=== PATIENT | male | born 2000 | race Caucasian/White ===

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

== ENCOUNTER 2021-02-20 14:46 | Inpatient (IN) | payer BC, SELFPAY ==
[2021-02-20 14:47] VITALS: BP 149/83; PULSE 101; RESP 18; TEMP 36.8; O2SAT 100; BMI 23.7
[2021-02-20 15:28] LABS: Basophils # 0.1 K/mm3 (0-0.2); Basophils % 0.9 % (0.1-2.0); Eosinophils # 0.1 K/mm3 (0.0-0.4); Eosinophils % 1.8 % (0.1-12.0); Hematocrit 48.8 % (42.0-52.0); Hemoglobin 16.7 g/dL (14.1-18.0); Lymphocytes # 2.4 K/mm3 (0.7-4.5); Lymphocytes % 31.9 % (10-50); Mean Corpuscular HGB Conc 34.2 g/dL (31.8-35.4); Mean Corpuscular Hemoglobin 29.8 pg (27.0-31.2); Mean Corpuscular Volume 87.1 fl (80-94); Mean Platelet Volume 8.7 fl (7.4-10.4); Monocytes # 0.4 K/mm3 (0.1-1.0); Monocytes % 5.6 % (1.7-9.3); Neutrophils # 4.4 K/mm3 (1.8-7.8); Neutrophils % 59.8 % (37.0-80.0); Platelet Count 218 K/mm3 (142-424); Red Cell Distribution Width 12.1 % (11.5-17.5); White Blood Count 7.4 K/mm3 (4.5-13.0)
[2021-02-20 15:31] VITALS: BP 130/66; PULSE 61; O2SAT 99
[2021-02-20 15:38] LABS: Alanine Aminotransferase 17 U/L (12-78); Albumin/Globulin Ratio 2.1 (1.1-1.8); Alkaline Phosphatase 84 U/L (38-126); Anion Gap 11.7 mEq/L (5-15); Aspartate Amino Transferase 30 U/L (17-59); Bilirubin,Total 1.4 mg/dl (0.2-1.3); Blood Urea Nitrogen 8 mg/dl (9-20); Calcium 9.8 mg/dl (8.4-10.2); Carbon Dioxide 26 mmol/L (22.0-30.0); Chloride 105 mmol/L (98-107); Creatinine Clearance Estimated 131 mL/min (50-200); Estimated Glomerular Filt Rate 85 ml/min (>60); GFR (African American) 103 ML/MIN (>60); Globulin 2.4 g/dL (1.3-3.2); Glucose 142 mg/dl (74-100); Potassium 3.7 mmoL/L (3.5-5.1); Sodium 139 mmol/L (136-145); Total Protein,Serum 7.4 g/dl (6.3-8.2)
--- NOTE | 2021-02-20 15:38 | HMH.EDGENADL ---
ED Disposition Clinical Impression: Kidney stone on left side Disposition: Admitted as Observation Condition on Discharge: Fair Instructions: DI for Kidney Stones Referrals: Hunter Armenta MD [Primary Care Provider] - Time of Disposition: 18:56 - Critical Care Critical Care Time: No Attestation: On 02/20/21, the high probability of a clinically significant, sudden or life threatening deterioration of the following system(s) required my full and direct attention, intervention and personal management. The time I documented below is in addition to time spent performing reported procedures but includes the following listed in this critical care notation. Medical Decision Making - Medical Records Medical records reviewed: Yes: I reviewed the patient's medical records. - Carlos Inquiry Pt receiving controlled substance: No Vital Signs: 02/20/21 14:47 02/20/21 17:12 02/20/21 18:06 Temperature 98.2 F Temperature Source Oral Pulse Rate 58 L 48 L Pulse Rate [Right] 101 H Respiratory Rate 18 Blood Pressure 108/51 L 115/54 L Blood Pressure [Right Arm] 149/83 H Blood Pressure Mean [Right Arm] 105 Blood Pressure Source Automatic Cuff Automatic Cuff Blood Pressure Position Sitting Sitting 02 Sat by Pulse Oximetry 100 96 98 Oxygen Delivery Method Room Air - Lab Data Lab Results 02/20/21 15:15: WBC 7.4, RBC 5.60, Hgb 16.7, Hct 48.8, MCV 87.1, MCH 29.8, MCHC 34.2, RDW 12.1, Plt Count 218, MPV 8.7, Neut % (Auto) 59.8, Lymph % (Auto) 31.9, [place] % (Auto) 5.6, Eos % (Auto) 1.8, Baso % (Auto) 0.9, Neut # (Auto) 4.4, Lymph # (Auto) 2.4, [place] # (Auto) 0.4, Eos # (Auto) 0.1, Baso # (Auto) 0.1 02/20/21 15:15: Sodium 139, Potassium 3.7, Chloride 105, Carbon Dioxide 26, Anion Gap 11.7, BUN 8 L, Creatinine 1.10, Estimated Creat Clear 131, Estimated GFR 85, Est GFR ( Amer) 103, Glucose 142 H, Calcium 9.8, Total Bilirubin 1.4 H, AST 30, ALT 17, Alkaline Phosphatase 84, Total Protein 7.4, Albumin 5.0, Globulin 2.4, Albumin/Globulin Ratio 2.1 H 02/20/21 18:23: Urine Color Brown, Urine Appearance Sl cloudy, Urine pH 6.5, Ur Specific [place] >= 1.030, Urine Protein 2+, Urine Glucose (UA) Negative, Urine Ketones Trace, Urine Blood 3+, Urine Nitrate Negative, Urine Bilirubin Negative, Urine Urobilinogen 1.0, Ur Leukocyte Esterase Negative, Urine RBC Tntc, Urine WBC Occasional, Ur Squamous Epith Cells None, Urine Bacteria 3+, Urine Mucus 2+ Result diagrams: 02/20/21 15:15 02/20/21 15:15 Orders (Tests/Meds): ED MEDICATIONS Generic Name Dose Route Start Last Admin Trade Name Freq PRN Reason Stop Dose Admin Sodium Chloride 1,000 mls @ 999 mls/hr 02/20/21 17:00 02/20/21 17:12 Sod Chlor 0.9% 1000ml Bag IV 02/20/21 18:00 999 mls/hr .Q1H1M PRADIP Administration Tamsulosin HCl 0.4 mg 02/20/21 21:00 02/20/21 17:15 Tamsulosin 0.4mg Capsule PO 03/22/21 20:59 0.4 mg HS PRADIP Administration Discontinued Medications Generic Name Dose Route Start Last Admin Trade Name Melloq PRN Reason Stop Dose Admin Hydromorphone HCl 1 mg 02/20/21 16:52 02/20/21 16:54 Hydromorphone 2mg/Ml Syringe IV 02/20/21 16:53 1 mg ONCE ONE Administration Sodium Chloride 1,000 mls @ 999 mls/hr 02/20/21 15:00 02/20/21 15:27 Sod Chlor 0.9% 1000ml Bag IV 02/20/21 16:00 999 mls/hr .Q1H1M PRADIP Administration Ketorolac Tromethamine 15 mg 02/20/21 14:59 02/20/21 15:26 Ketorolac 30mg/Ml Vial IV 02/20/21 15:00 15 mg ONCE ONE Administration Morphine Sulfate 4 mg 02/20/21 15:40 02/20/21 15:42 Morphine 4mg/Ml Syringe IV 02/20/21 15:41 4 mg ONCE ONE Administration Ondansetron HCl 4 mg 02/20/21 14:59 02/20/21 15:26 Ondansetron 4mg/2ml Vial IV 02/20/21 15:00 4 mg ONCE ONE Administration ORDERS Category Date Time Status CT abdomen pelvis wo con Stat Cat Scan 02/20/21 15:42 Taken Urine Culture Stat Micro 02/20/21 18:23 Received - CT Data CT Scan: Abdomen Time Receiv
--- NOTE | 2021-02-20 15:42 | CT_ITS ---
PROCEDURE: CT ABDOMEN PELVIS WO CON CLINICAL INDICATION: left flank pain COMPARISON: CT ABDPELW/O CT ABD PELVIS W/O CONTRAST from 11/05/2014 TECHNIQUE: Axial images obtained with sagittal and coronal reformats. All CT scans at the facility use one or more dose reduction, viz: automated exposure control, ma/kV adjustment per patient size (including targeted exams where dose is matched to indication, i.e. head), or iterative reconstruction technique. FINDINGS: LOWER THORAX: No acute finding ABDOMEN & PELVIS: There is a small hiatal hernia. There are multiple punctate splenic calcifications and a small right hepatic lobe calcification. There is a 5 mm stone in the proximal left ureter at the L2-L3 level causing mild left obstructive uropathy. There is minimal stranding of the left proximal periureteral fat. No renal calculi are evident. No evidence of appendicitis. No intestinal obstruction or free air. There is mild thickening of the descending and sigmoid colon. This is nonspecific and may be due to nondistention. Colitis could have a similar appearance. There is few small mesenteric lymph nodes. Small punctate calcification is present in the right femoral head and may represent a small bone island IMPRESSION: 5 mm obstructing stone in the proximal left ureter with mild left hydronephrosis Nonspecific thickening of the descending and sigmoid colon which may be due to nondistention or colitis. Dictated by: Star Heath MD 02/21/2021 11:27 Star Heath MD in [place] 02/21/2021 11:27
--- NOTE | 2021-02-20 16:38 | PC.NURSE ---
Pt complains of more pain at this time.
[2021-02-20 17:12] VITALS: BP 108/51; PULSE 58; O2SAT 96
[2021-02-20 18:06] VITALS: BP 115/54; PULSE 48; O2SAT 98
--- NOTE | 2021-02-20 18:25 | PC.NURSE ---
Pt's urine collected and was tea colored.
[2021-02-20 18:31] LABS: Microscopic, Urine URINE MICROSCOPIC (MICROSCOPIC)
[2021-02-20 18:38] LABS: Appearance,Urine SL CLOUDY (Clear); Blood, Urine 3+ (Negative); Color,Urine BROWN (Yellow); Glucose,Urine (UA) Negative (Negative); Ketones,Urine TRACE (Negative); Leukocyte Esterase,Urine Negative (Negative); Nitrate,Urine Negative (Negative); PH,Urine 6.5 (5.0-8.5); Protein,Urine 2+ (Negative); Specific Gravity, Urine >= 1.030 (1.005-1.030)
[2021-02-20 18:41] LABS: Bilirubin,Urine Negative (Negative)
[2021-02-20 18:48] LABS: Bacteria,Urine 3+ /lpf; Mucus,Urine 2+ /lpf; RBC,Urine TNTC #/hpf (0-3); WBC,Urine Occasional #/hpf (0-3)
[2021-02-20 19:39] LABS: Adenovirus,PCR Not Detected (NotDetected); Bordetella Pertussis Not Detected (NotDetected); Chlamydophila Pneumoniae, PCR Not Detected (NotDetected); Coronavirus 19, PCR Not Detected (NotDetected); Coronavirus 229E Not Detected (NotDetected); Coronavirus NL63 Not Detected (NotDetected); Coronavirus OC43 Not Detected (NotDetected); Coronovirus HKU1,PCR Not Detected (NotDetected); Human Metapneumovirus Not Detected (NotDetected); Influenza A, PCR Not Detected (NotDetected); Influenza AH1, 2009 Not Detected (NotDetected); Influenza AH1, PCR Not Detected (NotDetected); Influenza AH3,PCR Not Detected (NotDetected); Influenza B, PCR Not Detected (NotDetected); Mycoplasma Pneumoniae, PCR Not Detected (NotDetected); Parainfluenza 1, PCR Not Detected (NotDetected); Parainfluenza 2, PCR Not Detected (NotDetected); Parainfluenza 3, PCR Not Detected (NotDetected); Parainfluenza 4, PCR Not Detected (NotDetected); Respiratory Syncytial Virus Not Detected (NotDetected); Rhinovirus/Enterovirus Not Detected (NotDetected)
--- NOTE | 2021-02-20 20:42 | PC.NURSE ---
called second floor to come get patient report and patient.
[2021-02-20 20:56] VITALS: BP 115/54; PULSE 48; RESP 16; TEMP 36.8; O2SAT 98
[2021-02-20 21:00] VITALS: BP 130/68; PULSE 56; RESP 15; TEMP 36.8; O2SAT 100; BMI 25.9
--- NOTE | 2021-02-20 21:00 | PC.NURSE ---
patient up to floor wheelchair.
[2021-02-21 03:49] VITALS: BP 143/72; PULSE 66; RESP 16; TEMP 36.6; O2SAT 100
--- NOTE | 2021-02-21 04:03 | PC.NURSE ---
Pt. had two episodes of l flank pain; effectiveness reported with morphine. No n/v/d or dizziness reported. Intermittent soa with episodes of pain. Urine dark yellow in color; straining with no sediment noted.
[2021-02-21 05:07] VITALS: BMI 25.8
[2021-02-21 06:20] LABS: Basophils % 0.2 % (0.1-2.0); Eosinophils # 0.2 K/mm3 (0.0-0.4); Eosinophils % 1.5 % (0.1-12.0); Hematocrit 44.8 % (42.0-52.0); Hemoglobin 15.2 g/dL (14.1-18.0); Lymphocytes # 2.6 K/mm3 (0.7-4.5); Lymphocytes % 24.6 % (10-50); Mean Corpuscular HGB Conc 33.9 g/dL (31.8-35.4); Mean Corpuscular Hemoglobin 29.9 pg (27.0-31.2); Mean Corpuscular Volume 88.1 fl (80-94); Mean Platelet Volume 8.8 fl (7.4-10.4); Monocytes # 0.6 K/mm3 (0.1-1.0); Monocytes % 5.3 % (1.7-9.3); Neutrophils # 7.1 K/mm3 (1.8-7.8); Neutrophils % 68.3 % (37.0-80.0); Platelet Count 168 K/mm3 (142-424); Red Blood Count 5.09 M/mm3 (4.60-6.20); Red Cell Distribution Width 12.1 % (11.5-17.5); White Blood Count 10.4 K/mm3 (4.5-13.0)
[2021-02-21 06:33] LABS: Chloride 108 mmol/L (98-107); Potassium 3.6 mmoL/L (3.5-5.1); Sodium 140 mmol/L (136-145)
[2021-02-21 06:36] LABS: Anion Gap 9.6 mEq/L (5-15); Blood Urea Nitrogen 7 mg/dl (9-20); Carbon Dioxide 26 mmol/L (22.0-30.0); Creatinine Clearance Estimated 175 mL/min (50-200); Estimated Glomerular Filt Rate 108 ml/min (>60); GFR (African American) 130 ML/MIN (>60)
[2021-02-21 06:37] LABS: Glucose 97 mg/dl (74-100)
[2021-02-21 07:01] LABS: Calcium 8.8 mg/dl (8.4-10.2)
--- NOTE | 2021-02-21 07:33 | P.CONPHA_ITS ---
[facility] Pharmacy VTE Monitoring - Patient Demographics Admission date: 02/20/21 Report Date: 02/21/21 Time: 07:33 Allergies/Adverse Reactions: Patient Allergies No Known Allergies Allergy (Verified 07/29/20 13:27) Height: 1.91 m Weight: 94.376 kg Patient Problems: Current Active Problems Kidney stone on left side (Acute) - VTE Risk Labs: VTE Related Lab Results Hgb 15.2 g/dL (14.1-18.0) 02/21/21 06:08 Hct 44.8 % (42.0-52.0) 02/21/21 06:08 Plt Count 168 K/mm3 (142-424) 02/21/21 06:08 BUN 7 mg/dl (9-20) L 02/21/21 06:08 Creatinine 0.90 mg/dl (0.66-1.25) 02/21/21 06:08 Estimated Creat Clear 175 mL/min (50-200) 02/21/21 06:08 Was VTE Risk Assessment Performed: Yes VTE Score: 0 VTE Risk Level: Very Low Risk - Prophylaxis VTE Prophylaxis Ordered?: Yes Types of VTE Prophylaxis: TEDS Knee High Location of Applied Device: Bilateral Lower Extremeties
[2021-02-21 08:00] VITALS: BP 123/50; PULSE 73; RESP 16; TEMP 36.8; O2SAT 97
--- NOTE | 2021-02-21 08:46 | HMH.HP ---
*Admission Date: 02/20/21 <Lyla Sullivan 02/21/21 09:00> *Chief complaint: Left leg pain <Lyla Sullivan 02/21/21 09:00> *History of present illness: Mr. Barr is a 21-year-old male with a history of seizure disorder and disseminated histoplasmosis who presented to the emergency room yesterday p.m. after experiencing sudden onset of left flank pain. He describes the pain as like a dagger sticking in the side. He works nights at [employer], slept well, and when awake went out to mow the lawn. While on his riding mower the pain began. He also had some nausea. Work-up in the emergency room revealed a kidney stone At 3.5 mm in the proximal ureter. He received a liter of IV fluids, was started on Flomax and given hydromorphone, Ketorolac and morphine for his pain. He also received Zofran for some nausea. The Dilaudid seemed to help his pain the best. Laboratory data on admission showed a normal CBC. Electrolytes were normal. BUN was 8 creatinine 1.10. Total bilirubin was a little high at 1.4 with otherwise normal liver function studies. Urine did show 3+ blood. This a.m. at time of exam patient is shaking with discomfort. He received morphine at 7 AM and was then given Dilaudid at this time. He was also given Zofran for nausea. He has been voiding and urine appears with blood. <Lyla Sullivan 02/21/21 09:00> [facility] History Medical History: Reports:: Kidney Stones, Seizures (Last seizure was about a month ago) Denies:: Cancer, Diabetes Mellitus Type 1, Diabetes Mellitus Type 2, MRSA <Lyla Sullivan 02/21/21 09:00> *Have you ever received a pneumonia vaccine?: No <Lyla Sullivan 02/21/21 09:00> *Have you received a flu vaccine this season?: No <Lyla Sullivan 02/21/21 09:00> Other Medical History: Reports: Other (histoplasmosis) <Lyla Sullivan 02/21/21 09:00> Comment:: Patient notes a 30 pound weight loss in the last 1 to 2 months. 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 <Lyla Sullivan 02/21/21 09:00> Other Surgeries: Yes: Other (wisdom teeth) <Lyla Sullivan 02/21/21 09:00> Amputation: No <Lyla Sullivan 02/21/21 09:00> - *Social History Last grade of school completed: High school graduate <Lyla Sullivan 02/21/21 09:00> Smoking Status: Current every day smoker <Lyla Sullivan 02/21/21 09:00> Tobacco Type: e-cigarettes, smokeless tobacco <Lyla Sullivan 02/21/21 09:00> # Packs/Day (cigarettes): 0 <Lyla Sullivan 02/21/21 09:00> Alcohol Intake: current <Lyla Sullivan 02/21/21 09:00> Alcohol Intake Frequency:: holidays/special occasions only <Lyla Sullivan 02/21/21 09:00> Substance Use Type: marijuana <Lyla Sullivan 02/21/21 09:00> Last Used Substance: hours (ago) <Lyla Sullivan 02/21/21 09:00> *Occupational Status:: employed <Lyla Sullivan 02/21/21 09:00> Housing: house <Lyla Sullivan 02/21/21 09:00> Household Members: family <Lyla Sullivan 02/21/21 09:00> *Travel in the last 8 weeks: None <Lyla Sullivan 02/21/21 09:00> Family Hx:: Bleeding Disorder, Cancer, Diabetes, Heart Attack <Lyla Sullivan 02/21/21 09:00> Review of Systems - Constitutional Reports weight loss <Lyla Sullivan 02/21/21 09:00> - Eyes Denies change in vision <Lyla Sullivan 02/21/21 09:00> - ENT Denies ear pain, Denies sore throat <Lyla Sullivan 02/21/21 09:00> - *Cardiovascular Denies chest pain, Denies shortness of breath, Denies generalized swelling, Denies leg swelling <Lyla Sullivan 02/21/21 09:00> - *Respiratory Denies chest congestion, Denies cough, Denies shortness of breath <Lyla Sullivan 02/21/21 09:00> - *Gastrointestinal Reports abdominal pain, Reports nausea, Reports vomiting, Denies vomiting blood <Lyla Sullivan 02/21/21 09:00> - *Genitourinary Reports blood in urine, Denies difficulty urinating <Lyla Sullivan 02/21/21 09:00> - *Musculoskeletal Denies abnormal walking <Lyla Sullivan 02/21/21 09:00> - *Neurologic Denies abnormal spee
--- NOTE | 2021-02-21 10:11 | PC.NURSE ---
Addendum entered by Brina Lozano RN 02/21/21 17:28: CAME TO SEE PT AND IT WAS DECIDED TO OBSERVE PT OVERNIGHT AND CONTINUE TO STRAIN AND MONITOR URINE, CONTINUE FLUIDS AND SEE IF PT CAN PASS THE STONE ON HIS OWN. PT WILL BE NPO AFTER MIDNIGHT AND HAVE A KUB IN THE MORNING. PT IS ON THE SCHEDULE FOR SURGERY TOMORROW IF STONE DOES NOT PASS. Original Note: PT IS RESTING IN BED WITH FAMILY AT BEDSIDE. AT THE BEGINNING OF THE SHIFT THIS MORNING PT WAS SHAKING WITH SEVERE DISCOMFORT. PT HAD 2 MG OF MORPHINE AND TORADOL PRIOR. PT HAD A DOSE OF ZOFRAN FOR NAUSEA. CA ÁNGEL WAS AT BEDSIDE AND ORDERED PHENERGAN 12.5 Q6H FOR N/V. CA NEAL GOT A DILAUDID 2 MG IV ORDER FROM TO GIVE PT AT 0740 THIS MORNING. PT GOT THE DILAUDID AND PHENERGAN AND HE IS NOW RESTING. DURING ASSESSMENT THIS MORNING IT WAS REPORTED FROM PT'S MOTHER AND PT THAT HE HAS HAD A 30 POUND WEIGHT LOSS IN THE LAST 2 MONTHS. PT HAS BEEN WORKING NIGHTS THE LAST 2 MONTHS AND HAS BEEN UNABLE TO EAT ON A REGULAR SCHEDULE. PT'S VSS. PT HAS NOT BEEN HAVING ANY ISSUES WITH DIARRHEA OR ANY OTHER ABDOMINAL PROBLEMS. PT STATES HE DOES HAVE HISTORY OF SEIZURES BUT HE DOES NOT TAKE ANY MEDICATION FOR THIS. PT LIVES WITH HIS PARENTS. AMBULATES W/O DIFFICULTY. PT WILL SEE UROLOGY TODAY. PT HAS BEEN TAKING SIPS OF LIQUIDS BUT WAS UNABLE TO EAT BREAKFAST DUE TO HIS SEVERE PAIN AND NAUSEA THIS MORNING. WILL CONTINUE TO MONITOR.
--- NOTE | 2021-02-21 13:26 | XR_ITS ---
PROCEDURE: XR KUB CLINICAL INDICATION: kidney stone COMPARISON: CT CT ABDOMEN PELVIS WO CON from 02/20/2021 FINDINGS: A 5 mm stone is between the 2nd and 3rd transverse process consistent with a proximal ureteral stone. The bowel gas pattern is nonspecific. No acute bony findings. IMPRESSION: 5 mm proximal left ureteral calculus Dictated by: Star Heath MD 02/21/2021 17:12 Star Heath MD in [place] 02/21/2021 17:12
[2021-02-21 16:00] VITALS: BP 111/44; PULSE 59; RESP 16; TEMP 36.8; O2SAT 99
[2021-02-21 16:30] VITALS: BMI 25.7
--- NOTE | 2021-02-21 17:01 | HMH.CONS ---
*Admission Date: 02/20/21 *Reason for consult:: Left ureteral calculus *History of present illness: Patient is a 21-year-old white male with history of seizures and disseminated histoplasmosis he began experiencing left renal colic yesterday and came into the emergency room for evaluation. CT scan revealed a 3.5 mm stone in the proximal ureter. His pain was treated but he continued to have discomfort and he was admitted for pain control. Creatinine is normal at 1.1. His white count is 10.4. Patient states he did fairly well from a pain standpoint overnight but did have some discomfort this morning. Pain has been well controlled with pain medication. He denies a prior history of kidney stones. [facility] History Medical History: Reports:: Kidney Stones, Seizures (Last seizure was about a month ago) Denies:: Cancer, Diabetes Mellitus Type 1, Diabetes Mellitus Type 2, MRSA *Have you ever received a pneumonia vaccine?: No *Have you received a flu vaccine this season?: No Other Medical History: Reports: Other (histoplasmosis) Other Surgeries: Yes: Other (wisdom teeth) Amputation: No - *Social History Last grade of school completed: High school graduate Smoking Status: Current every day smoker Tobacco Type: e-cigarettes, smokeless tobacco # Packs/Day (cigarettes): 0 Alcohol Intake: current Alcohol Intake Frequency:: holidays/special occasions only Substance Use Type: marijuana Last Used Substance: hours (ago) *Occupational Status:: employed Housing: house Household Members: family *Travel in the last 8 weeks: None Family Hx:: Bleeding Disorder, Cancer, Diabetes, Heart Attack Review of Systems - Review of Systems Review of systems:: pertinent systems reviewed and negative unless documented below - *Neurologic Denies abnormal walking, Denies abnormal speech, Denies dizziness Meds Home Medications Medication Instructions Recorded Confirmed Type No Known Home Medications 02/20/21 02/20/21 History Allergies Allergy/AdvReac Type Severity Reaction Status Date / Time No Known Allergies Allergy Verified 07/29/20 13:27 Exam Vital signs and Labs for Last 24 Hours: Temp Pulse Resp BP Pulse Ox 98.3 F 59 L 16 111/44 L 99 02/21/21 16:00 02/21/21 16:00 02/21/21 16:00 02/21/21 16:00 02/21/21 16:00 Laboratory Results - last 24 hr 02/20/21 18:23: Urine Color Brown, Urine Appearance Sl cloudy, Urine pH 6.5, Ur Specific [place] >= 1.030, Urine Protein 2+, Urine Glucose (UA) Negative, Urine Ketones Trace, Urine Blood 3+, Urine Nitrate Negative, Urine Bilirubin Negative, Urine Urobilinogen 1.0, Ur Leukocyte Esterase Negative, Urine RBC Tntc, Urine WBC Occasional, Ur Squamous Epith Cells None, Urine Bacteria 3+, Urine Mucus 2+ 02/20/21 18:56: Chlamy pneumoniae PCR Not detected, Adenovirus (PCR) Not detected, B. pertussis DNA (PCR) Not detected, Coronavirus OC43 (PCR) Not detected, Coronavirus HKU1 (PCR) Not detected, Coronavirus 229E (PCR) Not detected, SARS-CoV-2 (PCR) Not detected, Coronavirus NL63 (PCR) Not detected, Human Metapneumovir PCR Not detected, Influenza A (H1) PCR Not detected, Influ A (H1N1/09) PCR Not detected, Influenza A (H3) PCR Not detected, Influenza Type A (PCR) Not detected, Influenza Type B (PCR) Not detected, M. pneumoniae (PCR) Not detected, Parainfluenza 1 (PCR) Not detected, Parainfluenza 2 (PCR) Not detected, Parainfluenza 3 (PCR) Not detected, Parainfluenza 4 (PCR) Not detected, RSV (PCR) Not detected, Entero/Rhino (PCR) Not detected 02/21/21 06:08: WBC 10.4 D, RBC 5.09, Hgb 15.2, Hct 44.8, MCV 88.1, MCH 29.9, MCHC 33.9, RDW 12.1, Plt Count 168, MPV 8.8, Neut % (Auto) 68.3, Lymph % (Auto) 24.6, [place] % (Auto) 5.3, Eos % (Auto) 1.5, Baso % (Auto) 0.2, Neut # (Auto) 7.1, Lymph # (Auto) 2.6, [place] # (Auto) 0.6, Eos # (Auto) 0.2, Baso # (Auto) 0.0 02/21/21 06:08: Sodium 140, Potassium 3.6, Chloride 108 H, Carbon Dioxide 26, Anion Gap 9.6, BUN 7 L, Creatinine 0.90, Estimated Creat Clear 175, Estimated GFR 108,
--- NOTE | 2021-02-21 18:11 | PC.NURSE ---
per SRNA family brought [employer] for patient.
[2021-02-21 20:00] VITALS: BP 133/65; PULSE 63; RESP 16; TEMP 36.8; O2SAT 97
[2021-02-21 23:35] VITALS: BP 132/93; PULSE 94; RESP 18; TEMP 36.9; O2SAT 100
[2021-02-22] VITALS (19 sets, daily range): BP systolic 122–156; BP diastolic 51–93; PULSE 50–100; RESP 16–24; TEMP 36.4–36.9; O2SAT 95–98; BMI 25.7
--- NOTE | 2021-02-22 03:05 | PC.NURSE ---
A&OX4. PT TOLERATING RA WELL. PT UP INDEPENDENTLY IN ROOM. PT USING URINAL TO T/O SHIFT. THIS NURSE IS STRAINING URINE, NO STONE PRESENT THUS FAR. PT SHOWERED THIS SHIFT WELL. PT HAS HAD INTERMITTENT FLANK PAIN TO THE L SIDE T/O NIGHT. PT HAS BEEN GIVEN PRN PAIN MEDICATION T/O NIGHT. BEST RESULTS FROM DILAUDID. PT VS HAVE BEEN STABLE T/O SHIFT. PT HAS NOT HAD MUCH OF AN APPETITE BUT DID EAT SOME CHARISMA CRACKERS AND GATORADE. PT NPO SINCE 0000 THIS SHIFT. PT RESTING INTERMITTENTLY. WILL CONTINUE TO MONITOR.
--- NOTE | 2021-02-22 03:15 | PC.NURSE ---
URINE HAS REMAINED CLEAR AND LIGHT YELLOW, NORMAL ODOR.
--- NOTE | 2021-02-22 08:00 | XR_ITS ---
PROCEDURE: XR KUB CLINICAL INDICATION: kidney stone COMPARISON: CT CT ABDOMEN PELVIS WO CON from 02/20/2021 FINDINGS: There is mild diffuse gaseous dilatation of the entire colon including sigmoid colon and rectum. There is a small oval calcifications sitting between the transverse processes of L2 and L3 left-side consistent in size and location to the calculus seen on the CT scan abdomen pelvis 02/20/2021. No other calculi are seen along course of the left ureter or in pelvis. IMPRESSION: Persistent calculus proximal left ureter Dictated by: Dr. Jose Alejandro De Luna MD 02/22/2021 08:34 Dr. Jose Alejandro De Luna MD in [place] 02/22/2021 08:34
--- NOTE | 2021-02-22 08:37 | HMH.ACPN2 ---
<NateLyla - Last Filed: 02/22/21 08:37> Internal Medicine - PN: Subj *Date: 02/22/21 *Time: 08:37 Interval history: Patient is having more pain this morning. He has had Dilaudid in with minimal help. He feels the pain has moved a little bit on the left flank. He did have a relatively good day yesterday and actually had a shower. He is eating minimally. He denies nausea. He has no breathing difficulties. KUB this morning shows persistent calculus in the left ureter. Exam Vital signs and Labs for Last 24 Hours: Temp Pulse Resp BP Pulse Ox 98.0 F 50 L 16 134/52 L 97 02/22/21 04:00 02/22/21 04:00 02/22/21 04:00 02/22/21 04:00 02/22/21 04:00 I & O for Last 24 hours: Intake & Output 02/19/21 02/20/21 02/21/21 02/22/21 11:59 11:59 11:59 11:59 Intake Total 3241 / 3241 3254 / 3254 Output Total 730 / 730 2900 / 2900 Balance 2511 / 2511 354 / 354 Weight 208 lb 1 oz 206 lb 7 oz Microbiology Reports for the Last 24 Hours: Microbiology 02/20/21 18:23 Urine,Clean Catch Urine Culture - Preliminary NO GROWTH AFTER 24 HOURS - Constitutional no acute distress (He appears to be in pain although not as bad as yesterday a.m.) - *Routine Respiratory Exam Present: CTA bilaterally - *Routine Cardiovascular Exam Present: RRR - *Routine Abdominal Exam Present: soft, normoactive bowel sounds, tenderness (Left flank) - *Routine Extremities Exam Absent: edema, calf tenderness - *Routine Neurological Exam Present: alert, oriented X3 Assessment and Plan (1) Seizure disorder Status: Acute Category: Medical Code(s): G40.909 - Epilepsy, unspecified, not intractable, without status epilepticus (2) Kidney stone on left side Status: Acute Category: Medical Code(s): N20.0 - Calculus of kidney - Assessment and plan all Dx Assessment and Plan for all problems:: Continue with pain management. Continue with IV fluids. Dr. Mar to follow today. <Hunter Armenta - Last Filed: 02/22/21 09:19> Internal Medicine - PN: Subj *Date: 02/22/21 *Time: 09:19 Exam Vital signs and Labs for Last 24 Hours: Temp Pulse Resp BP Pulse Ox 97.6 F 61 18 133/51 L 97 02/22/21 08:00 02/22/21 08:00 02/22/21 08:00 02/22/21 08:00 02/22/21 08:00 I & O for Last 24 hours: Intake & Output 02/19/21 02/20/21 02/21/21 02/22/21 23:59 23:59 23:59 23:59 Intake Total 1999 / 1999 2939 / 2939 1556 / 1556 Output Total 400 / 400 2330 / 2730 900 / 900 Balance 1600 / 1600 609 / 209 656 / 656 Weight 208 lb 1 oz 207 lb 3.752 oz 206 lb 7 oz Microbiology Reports for the Last 24 Hours: Microbiology 02/20/21 18:23 Urine,Clean Catch Urine Culture - Preliminary NO GROWTH AFTER 24 HOURS Assessment and Plan (1) Seizure disorder Status: Acute Category: Medical Code(s): G40.909 - Epilepsy, unspecified, not intractable, without status epilepticus (2) Kidney stone on left side Status: Acute Category: Medical Code(s): N20.0 - Calculus of kidney - Assessment and plan all Dx Assessment and Plan for all problems:: Saw patient, agree with above note.
--- NOTE | 2021-02-22 12:07 | HMH.CONFU ---
Internal Medicine - PN: Subj *Date: 02/22/21 *Time: 12:07 Interval history: Patient is a 21-year-old white male with a 3-1/2 mm left proximal ureteral calculus. He had several bouts of discomfort overnight and KUB this morning shows the stone is still in the approximate location in the proximal left ureter. Exam Vital signs and Labs for Last 24 Hours: Temp Pulse Resp BP Pulse Ox 97.6 F 61 18 133/51 L 97 02/22/21 08:00 02/22/21 08:00 02/22/21 08:00 02/22/21 08:00 02/22/21 08:00 I & O for Last 24 hours: Intake & Output 02/19/21 02/20/21 02/21/21 02/22/21 23:59 23:59 23:59 23:59 Intake Total 1999 / 1999 2939 / 2939 1556 / 1556 Output Total 400 / 400 2330 / 2730 1350 / 1350 Balance 1600 / 1600 609 / 209 206 / 206 Weight 94.376 kg 94 kg 93.638 kg Microbiology Reports for the Last 24 Hours: Microbiology 02/20/21 18:23 Urine,Clean Catch Urine Culture - Preliminary NO GROWTH AFTER 24 HOURS - Constitutional no acute distress - *Routine HEENT Exam Head: Present: normocephalic Eye: Present: EOMI, PERRL ENT: Present: mucous membranes moist - *Routine Neck Exam Present: supple. Absent: lymphadenopathy - *Routine Respiratory Exam Absent: accessory muscle use - *Routine Cardiovascular Exam Absent: JVD - *Routine Abdominal Exam Present: soft. Absent: tenderness - *Routine Extremities Exam Absent: cyanosis, clubbing, edema - *Routine Skin Exam Present: warm. Absent: rash - *Routine Neurological Exam Present: alert, oriented X3 Assessment and Plan (1) Seizure disorder Status: Acute Category: Medical Code(s): G40.909 - Epilepsy, unspecified, not intractable, without status epilepticus (2) Kidney stone on left side Status: Acute Category: Medical Code(s): N20.0 - Calculus of kidney Patient with continued left renal colic due to a small left proximal ureteral stone. KUB shows a stone still in the approximate location and we will proceed with ureteroscopy and stone extraction later today. We discussed possible complications including inability to get up to the stone and ureteral injury.
--- NOTE | 2021-02-22 16:59 | P.PN_ITS ---
[facility] Anesthesia Checklist - Patient Identification Patient Identification: Arm Band - Structural Data Planned Operative Procedure/s: L ureteroscopy with stent Consent for Planned Operative Procedure(s) Verified: Yes Verified Documents: Surgical Consent, History and Physical - Neurological Assessment Level of Consciousness: Awake, Alert - Anesthesia Plan Anesthesia Risk discussed: Yes Anesthesia Plan: Verified ASA Class: II Anesthesia Type: General [facility] History Medical History: Reports:: Kidney Stones, Seizures (Last seizure was about a month ago) Denies:: Cancer, Diabetes Mellitus Type 1, Diabetes Mellitus Type 2, MRSA *Have you ever received a pneumonia vaccine?: No *Have you received a flu vaccine this season?: No Other Medical History: Reports: Other (histoplasmosis) Anesthesia experience/problems:: None Other Surgeries: Yes: Other (wisdom teeth) Amputation: No - *Social History Last grade of school completed: High school graduate Smoking Status: Current every day smoker Tobacco Type: e-cigarettes, smokeless tobacco # Packs/Day (cigarettes): 0 Alcohol Intake: current Alcohol Intake Frequency:: holidays/special occasions only Substance Use Type: marijuana Last Used Substance: hours (ago) *Occupational Status:: employed Housing: house Household Members: family *Travel in the last 8 weeks: None Family Hx:: Bleeding Disorder, Cancer, Diabetes, Heart Attack
--- NOTE | 2021-02-22 17:14 | FL_ITS ---
PROCEDURE: FL URETHROCYSTOGRAM RETRO CLINICAL INDICATION: STENT PLACEMENT IN OR COMPARISON: No exams were available for comparison FINDINGS: Fluoroscopy time: 5.8 minutes. Single images submitted showing a left ureteral stent in place curled in the left paraspinal region at the L2 level. IMPRESSION: Status post stent placement with fluoro assistance Dictated by: Star Heath MD 02/23/2021 14:53 Star Heath MD in [place] 02/23/2021 14:53
--- NOTE | 2021-02-22 17:31 | P.OP_ITS ---
Date of procedure: 02/22/21 Pre-op Diagnosis:: 3.5 mm proximal left ureteral stone Post-op Diagnosis:: 3.5 mm left proximal ureteral stone, left ureteral stenosis Procedure performed:: Cystoscopy, left ureteroscopy, stone manipulation, left stent placement Surgeon:: Miguel Mar MD ADULT PROBATION OFFICER:: Other Anesthesia: GETA Estimated blood loss (mL): 2 Clinical Note:: 21-year-old white male with left renal colic noted to have a 3-1/2 mm stone in the proximal left ureter. He wishes to proceed with urologic management. Operative findings:: Stone is noted in the proximal left ureter on fluoroscopy. There was stenosis of the upper portion of the distal left ureter and I was unable to pass a flexible scope or ureteral sheath. We were able to manipulate the stone back into the kidney and a 4.8 x 26 Trinidadian stent placed without difficulty. Operative note:: Patient taken to the operating room after informed consent was obtained. Is placed on the operating table in the supine position and general anesthesia administered. Preoperative antibiotics and sequential compression devices were placed. He was then placed into the dorsal lithotomy discission prepped and draped in standard surgical fashion. A 22 Javed passed into the urethral meatus and into the bladder without difficulty. The bladder was examined in a systematic fashion and was within normal limits. The ureteral orifices in their normal anatomic position and of normal caliber. A 0.035 guidewire was passed into the left ureteral orifice and it passed into the left renal pelvis without difficulty. The stone was noted in the proximal left ureter on fluoroscopy. A second guidewire was placed as well and the 36 cm, 11/13 ureteral sheath was passed over one of the guidewires but there was resistance met in the upper portion of the distal ureter and I was unable to manipulate the sheath by the stenotic segment. The sheath would just buckle in the bladder so the sheath was removed and my flexible ureteroscope was passed over one of the guidewires in the past up to the level of the resistance and is unable to pass the ureteroscope by as well due to ureteral stenosis. The ureteroscope was removed and a 5 Trinidadian ureteral catheter passed over one of the guidewires and the second guidewire removed. I was able to manipulate the stone back into the renal pelvis and the ureteral catheter removed. Our cystoscope was backloaded over the guidewire and a 4.8 x 26 Trinidadian stent passed into the left kidney and the guidewire removed. A good curl was noted proximally and distally. The string was left on for later removal. The patient tolerated procedure well. Urojet placed into the urethra for comfort measures. Condition: stable Disposition: PACU Specimens:: None Complications:: None
--- NOTE | 2021-02-22 17:42 | SUR.PHASEI ---
1721: DETAILED REPORT RECEIVED FROM Niranjan GUAJARDO RN. PATIENT AWAKE AND TALKING ON ARRIVAL TO PACU. Niranjan GUAJARDO RN AND I ASSESSED URETERAL STENT. SCUDS IN PLACED. VSS. PATIENT ABLE TO FOLLOW COMMANDS. DENIES PAIN AT PRESENT.
--- NOTE | 2021-02-22 17:53 | SUR.PHASEI ---
1751: DETAILED REPORT GIVEN TO Arely SHIN RN. PATIENT WILL BE TRANSPORTED TO ROOM 210 AT THIS TIME.
--- NOTE | 2021-02-22 18:13 | PC.NURSE ---
Pt back from surgery at this time. Lung sounds remain CTA. This morning pt was urinating cloudy, dark yellow urine. Pt has not voided yet since being back from surgery. Pt has had no c/o pain since arriving back to the floor. Stent remains in place and is hanging approx. 2.5 inches out of the pt's penis. No other acute changes or complaints at this time, will continue to monitor.
[2021-02-23] VITALS (7 sets, daily range): BP systolic 140–162; BP diastolic 69–78; PULSE 49–104; RESP 16–28; TEMP 36.6–37; O2SAT 94–97; BMI 25.4
--- NOTE | 2021-02-23 01:24 | ECG_ITS ---
APPROVED REPORT Exam: Resting ECG HR:121 bpm ECG Measurements Heart Rate 121 AXES [place] 168 P 63 QRSd 88 QRS 71 QT 294 T 51 QTc 417 Conclusion Sinus tachycardia Left atrial abnormality Borderline ECG Electronically signed by : Kevin Holguin, 02/23/2021 17:34:38
[2021-02-23 02:34] LABS: POC Glucose,Bedside 144 (70-110)
--- NOTE | 2021-02-23 02:47 | PC.NURSE ---
Took last VS for Post op at 0100 VSS, see V/S in chart. At 0115 patient c/o of tingliness from chest up to his head. Pt V/S Automatic 178/97 HR 124 RR 22 Sp)2 97% RA. Performed EKG on patient which revealed Sinus Tachycardia. Pt at 0120 pt starts schking uncontrollably and says he is numb all over. Assessed patient for S/S of Stroke, n facial or arm dropp or weakness noted bilaterally. Patient speech clear and appropriate. Called MD at 0138 to advise of change of condition and the order was for 0.5 mg Ativan IV X 1 NOW. Will cont to monitor for any acute changes
--- NOTE | 2021-02-23 04:18 | PC.NURSE ---
Pt VSS after pt received 0.5 mg Lorazepam IV X 1 NOW. Pt states feeling much better . Patient requested pain medication X 2 this shift. Patient stent remains 2 inches out of penis. Pt did complain that urine stream was slow. Output noted in chart. Will continue to monitor for any acute changes.
--- NOTE | 2021-02-23 07:55 | XR_ITS ---
PROCEDURE: XR KUB CLINICAL INDICATION: severe right Abd pain;uteral stent 02/22 COMPARISON: CT CT ABDOMEN PELVIS WO CON from 02/20/2021 FINDINGS: There is a left-sided ureteral stent in place which appears to be in satisfactory position. Previously noted left UPJ stone now peers to be overlying the lower pole of the left kidney measuring 4 mm. No obvious right renal or ureteral calculi. Nonspecific nonobstructive bowel gas pattern. No acute bony anomalies. IMPRESSION: Interval insertion of left ureteral stent with left nephrolithiasis Dictated by: Star Heath MD 02/23/2021 08:23 Star Heath MD in [place] 02/23/2021 08:23
--- NOTE | 2021-02-23 07:57 | HMH.ACPN2 ---
<Lyla Sullivan - Last Filed: 02/23/21 07:57> Internal Medicine - PN: Subj *Date: 02/23/21 *Time: 07:57 Interval history: Patient began having severe right flank and lower abdominal pain. He states it became severe when getting up and trying to void in the bathroom. He did fairly well after ureteral stent placed per Dr. Mar yesterday. He was able to eat some. Patient did have an anxiety attack during the night and received 0.5 mg of lorazepam IV which helped.with anxiety attack. Heart rate got up to 180; he had a rapid respiratory rate, and was shaking all over. He describes numbness and tingling in his arms and legs. He appeared to be hyperventilating. He did have pain medicine x2 during the night. He states his urine stream is very slow. He has been afebrile. He also had a similar event this morning prior to Dilaudid for the severe abdominal pain. Again heart rate increased and he became numb and tingled all over and was hyperventilating. When pain subsided his anxiety was resolved. Exam Vital signs and Labs for Last 24 Hours: Temp Pulse Resp BP Pulse Ox 98.2 F 94 H 16 149/77 H 95 02/23/21 04:00 02/23/21 04:00 02/23/21 04:00 02/23/21 04:00 02/23/21 04:00 Laboratory Results - last 24 hr 02/23/21 01:31: POC Glucose 144 H I & O for Last 24 hours: Intake & Output 02/20/21 02/21/21 02/22/21 02/23/21 11:59 11:59 11:59 11:59 Intake Total 3241 / 3241 3254 / 3254 2561 / 2561 Output Total 730 / 730 3350 / 3350 2550 / 2550 Balance 2511 / 2511 -96 / -96 Weight 208 lb 1 oz 206 lb 7 oz 204 lb 6 oz Microbiology Reports for the Last 24 Hours: Microbiology 02/20/21 18:23 Urine,Clean Catch Urine Culture - Final NO GROWTH AFTER 48 HOURS - Constitutional mild distress Comments: Shaking with pain - *Routine Respiratory Exam Present: CTA bilaterally - *Routine Cardiovascular Exam Present: RRR - *Routine Abdominal Exam Present: soft, normoactive bowel sounds, tenderness (Suprapubic area and left abdominal) - *Routine Extremities Exam Absent: edema, calf tenderness - *Routine Neurological Exam Present: alert, oriented X3 Assessment and Plan (1) Seizure disorder Status: Acute Category: Medical Code(s): G40.909 - Epilepsy, unspecified, not intractable, without status epilepticus (2) Kidney stone on left side Status: Acute Category: Medical Code(s): N20.0 - Calculus of kidney (3) S/P ureteral stent placement Status: Acute Category: Surgical Code(s): Z96.0 - Presence of urogenital implants (4) Acute flank pain Status: Acute Category: Medical Code(s): R10.9 - Unspecified abdominal pain - Assessment and plan all Dx Assessment and Plan for all problems:: Dilaudid administration relieved his pain. Will do stat KUB, CBC and BMP <Hunter Armenta - Last Filed: 02/23/21 08:43> Internal Medicine - PN: Subj *Date: 02/23/21 *Time: 08:39 Exam Vital signs and Labs for Last 24 Hours: Temp Pulse Resp BP Pulse Ox 98.6 F 92 H 16 162/78 H 96 02/23/21 08:00 02/23/21 08:00 02/23/21 08:00 02/23/21 08:00 02/23/21 08:00 Laboratory Results - last 24 hr 02/23/21 01:31: POC Glucose 144 H 02/23/21 08:14: WBC 10.8, RBC 5.27, Hgb 15.7, Hct 45.2, MCV 85.8, MCH 29.8, MCHC 34.7, RDW 12.0, Plt Count 180, MPV 9.1, Neut % (Auto) 88.9 H, Lymph % (Auto) 7.3 L, St[place]ard % (Auto) 3.2, Eos % (Auto) 0.5, Baso % (Auto) 0.1, Neut # (Auto) 9.6 H, Lymph # (Auto) 0.8, [place] # (Auto) 0.4, Eos # (Auto) 0.1, Baso # (Auto) 0.0 02/23/21 08:14: Sodium 138, Potassium 3.6, Chloride 105, Carbon Dioxide 25, Anion Gap 11.6, BUN 7 L, Creatinine 0.80, Estimated Creat Clear 193, Estimated GFR 123, Est GFR ( Amer) 149, Glucose 165 H, Calcium 9.6 I & O for Last 24 hours: Intake & Output 02/20/21 02/21/21 02/22/21 02/23/21 23:59 23:59 23:59 23:59 Intake Total 1999 2939 / 2939 1656 / 2643 2701 / 2701 Output Total 400 /
[2021-02-23 08:24] LABS: Basophils % 0.1 % (0.1-2.0); Eosinophils # 0.1 K/mm3 (0.0-0.4); Eosinophils % 0.5 % (0.1-12.0); Hematocrit 45.2 % (42.0-52.0); Hemoglobin 15.7 g/dL (14.1-18.0); Lymphocytes # 0.8 K/mm3 (0.7-4.5); Lymphocytes % 7.3 % (10-50); Mean Corpuscular HGB Conc 34.7 g/dL (31.8-35.4); Mean Corpuscular Hemoglobin 29.8 pg (27.0-31.2); Mean Corpuscular Volume 85.8 fl (80-94); Mean Platelet Volume 9.1 fl (7.4-10.4); Monocytes # 0.4 K/mm3 (0.1-1.0); Monocytes % 3.2 % (1.7-9.3); Neutrophils # 9.6 K/mm3 (1.8-7.8); Neutrophils % 88.9 % (37.0-80.0); Platelet Count 180 K/mm3 (142-424); Red Blood Count 5.27 M/mm3 (4.60-6.20); White Blood Count 10.8 K/mm3 (4.5-13.0)
[2021-02-23 08:25] LABS: MANUAL DIFFERENTIAL MANUAL DIFFERENTIAL (MANUAL DIFF)
[2021-02-23 08:36] LABS: Anion Gap 11.6 mEq/L (5-15); Blood Urea Nitrogen 7 mg/dl (9-20); Calcium 9.6 mg/dl (8.4-10.2); Carbon Dioxide 25 mmol/L (22.0-30.0); Chloride 105 mmol/L (98-107); Creatinine Clearance Estimated 193 mL/min (50-200); Estimated Glomerular Filt Rate 123 ml/min (>60); GFR (African American) 149 ML/MIN (>60); Glucose 165 mg/dl (74-100); Potassium 3.6 mmoL/L (3.5-5.1); Sodium 138 mmol/L (136-145)
[2021-02-23 08:45] LABS: Lymphocytes % 6 % (10-50); Monocytes % 4 % (2-9); Neutrophils % 90 % (42-76); Total Cells Counted 100
[2021-02-23 08:46] LABS: Platelet Estimate Normal; RBC Morphology Normal
--- NOTE | 2021-02-23 18:02 | PC.NURSE ---
Pt has c/o pain x3 this shift and has been medicated per MAR w/ favorable results. Urine has remained strained t/o this shift- no evidence of calculi noted. Urine has been a cloudy, dark malick color most of this shift but was bright red x1 this shift. Active bowel sounds in all 4 quads. VSS. No other episodes of anxiety since this morning during rounds. Family has remained at bedside t/o shift. No other acute changes or complaints.
--- NOTE | 2021-02-24 03:02 | PC.NURSE ---
No acute changes this shift. Pt A&O x4. Pt c/o pain in lower back and urethra after voiding in urinal. Dilaudid given x2 per mar with desired effects. Pt has one episode of nausea, zofran and then phenergan given per mar with desired effects. Urine is dark, malick colored. urine is still being strained, No calculi noted. IV patent, NS @ 150. VSS, call light in reach, no concerns at this time.
[2021-02-24 04:00] VITALS: BP 111/45; PULSE 41; RESP 18; TEMP 36.6; O2SAT 97
[2021-02-24 05:00] VITALS: BMI 25.0
--- NOTE | 2021-02-24 07:55 | HMH.ANESII ---
[facility] Anesthesia Record Part II Discharge Time: 17:51 Destination: Surgical Day Care (OP Surgery) PACU nurse assessment reviewed?: Yes Patient Condition:: Good Anesthesia Complications:: None Swallowing reflex intact?: Yes Cyanosis?: No Blood Pressure: 128/66 Pulse Rate: 65 Temperature: 98.2 F Mental Status: Alert & Oriented Pain level:: 0 Nausea and/or vomitting:: None Intake, IV Amount: 1,000
[2021-02-24 07:56] VITALS: BP 128/66; PULSE 65; TEMP 36.8
[2021-02-24 08:00] VITALS: BP 121/56; PULSE 46; RESP 18; TEMP 36.5; O2SAT 97
--- NOTE | 2021-02-24 08:30 | HMH.ACPN2 ---
<Sandra Claudio - Last Filed: 02/24/21 08:30> Internal Medicine - PN: Subj *Date: 02/24/21 *Time: 08:30 Interval history: Patient states he is feeling better today. He only has abdominal pain when he has to have a bowel movement. He states he is constipated and has not been able to go. He still has some burning with urination. His pain is minimal at this point and he was able to sleep last night and tolerate some food. Exam Vital signs and Labs for Last 24 Hours: Temp Pulse Resp BP Pulse Ox 97.7 F 46 L 18 121/56 L 97 02/24/21 08:00 02/24/21 08:00 02/24/21 08:00 02/24/21 08:00 02/24/21 08:00 Laboratory Results - last 24 hr 02/23/21 08:14: Total Counted 100, Neutrophils % (Manual) 90 H, Lymphocytes % (Manual) 6 L, Monocytes % (Manual) 4, Platelet Estimate Normal, RBC Morphology Normal 02/23/21 08:14: Sodium 138, Potassium 3.6, Chloride 105, Carbon Dioxide 25, Anion Gap 11.6, BUN 7 L, Creatinine 0.80, Estimated Creat Clear 193, Estimated GFR 123, Est GFR ( Amer) 149, Glucose 165 H, Calcium 9.6 I & O for Last 24 hours: Intake & Output 02/21/21 02/22/21 02/23/21 02/24/21 11:59 11:59 11:59 11:59 Intake Total 3241 / 3241 3254 / 3254 2801 / 2801 1360 / 1360 Output Total 730 / 730 3350 / 3350 2750 / 2750 2009 Balance 2511 / 2511 -96 / -96 51 / 51 -650 / -650 Weight 208 lb 1 oz 206 lb 7 oz 204 lb 6 oz 201 lb 4 oz - Constitutional no acute distress - *Routine Respiratory Exam Present: CTA bilaterally - *Routine Cardiovascular Exam Present: RRR - *Routine Abdominal Exam Present: soft, normoactive bowel sounds. Absent: tenderness - *Routine Extremities Exam Absent: cyanosis, clubbing, edema - *Routine Skin Exam Present: warm. Absent: rash - *Routine Neurological Exam Present: alert, oriented X3 Assessment and Plan (1) Seizure disorder Status: Acute Category: Medical Code(s): G40.909 - Epilepsy, unspecified, not intractable, without status epilepticus (2) Kidney stone on left side Status: Acute Category: Medical Code(s): N20.0 - Calculus of kidney (3) S/P ureteral stent placement Status: Acute Category: Surgical Code(s): Z96.0 - Presence of urogenital implants (4) Acute flank pain Status: Acute Category: Medical Code(s): R10.9 - Unspecified abdominal pain (5) Constipation Status: Acute Category: Medical Code(s): K59.00 - Constipation, unspecified - Assessment and plan all Dx Assessment and Plan for all problems:: Patient already has stool softeners ordered. Will order some MiraLAX as well. Possible discharge home today. <Hunter Armenta - Last Filed: 02/24/21 08:48> Internal Medicine - PN: Subj *Date: 02/24/21 *Time: 08:47 Exam Vital signs and Labs for Last 24 Hours: Temp Pulse Resp BP Pulse Ox 97.7 F 46 L 18 121/56 L 97 02/24/21 08:00 02/24/21 08:00 02/24/21 08:00 02/24/21 08:00 02/24/21 08:00 I & O for Last 24 hours: Intake & Output 02/21/21 02/22/21 02/23/21 02/24/21 23:59 23:59 23:59 23:59 Intake Total 2939 / 2939 1656 / 2643 3061 / 3061 1000 / 1000 Output Total 2330 / 2730 2150 / 3050 3650 / 3960 310 / 310 Balance 609 / 209 -494 / -407 -589 / -899 690 / 690 Weight 207 lb 3.752 oz 206 lb 7 oz 204 lb 6 oz 201 lb 4 oz Assessment and Plan (1) Seizure disorder Status: Acute Category: Medical Code(s): G40.909 - Epilepsy, unspecified, not intractable, without status epilepticus (2) Kidney stone on left side Status: Acute Category: Medical Code(s): N20.0 - Calculus of kidney (3) S/P ureteral stent placement Status: Acute Category: Surgical Code(s): Z96.0 - Presence of urogenital implants (4) Acute flank pain Status: Acute Category: Medical Code(s): R10.9 - Unspecified abdominal pain (5) Constipation Status: Acute Category: Medical Code(s): K59.00 - Constipation, unspecified - Assessment and plan all Dx Assessment and Plan for all problems:: Sa
--- NOTE | 2021-02-24 12:19 | HMH.CONFU ---
Internal Medicine - PN: Subj *Date: 02/24/21 *Time: 12:19 Interval history: Patient is status post left stone manipulation left stent placement 2 days ago. He has had some intermittent stent colic and has been kept in the hospital for that as well as some associated tachycardia. He had a better evening last night. Exam Vital signs and Labs for Last 24 Hours: Temp Pulse Resp BP Pulse Ox 97.7 F 46 L 18 121/56 L 97 02/24/21 08:00 02/24/21 08:00 02/24/21 08:00 02/24/21 08:00 02/24/21 08:00 I & O for Last 24 hours: Intake & Output 02/21/21 02/22/21 02/23/21 02/24/21 23:59 23:59 23:59 23:59 Intake Total 2939 / 2939 1656 / 2643 3061 / 3061 1000 / 1000 Output Total 2330 / 2730 2150 / 3050 3650 / 3960 910 / 910 Balance 609 / 209 -494 / -407 -589 / -899 90 / 90 Weight 94 kg 93.638 kg 92.703 kg 91.285 kg - Constitutional no acute distress - *Routine HEENT Exam Head: Present: normocephalic Eye: Present: EOMI, PERRL ENT: Present: mucous membranes moist - *Routine Neck Exam Absent: JVD - *Routine Respiratory Exam Absent: accessory muscle use - *Routine Cardiovascular Exam Absent: JVD - *Routine Abdominal Exam Present: normoactive bowel sounds - *Routine Extremities Exam Absent: cyanosis, clubbing, edema - *Routine Skin Exam Present: intact. Absent: rash - *Routine Neurological Exam Present: oriented X3 Assessment and Plan (1) Seizure disorder Status: Acute Category: Medical Code(s): G40.909 - Epilepsy, unspecified, not intractable, without status epilepticus (2) Kidney stone on left side Status: Acute Category: Medical Code(s): N20.0 - Calculus of kidney 21-year-old white male with left ureteral stone status post stone manipulation and left stent placement. KUB shows the stone is now in the left lower pole and the stent is in good position. The patient has had some stent colic and I discussed options with the father including removing the stent and hoping that the stone does not pass back into the ureter. He is set up for left ESWL next week in [place]. They do not want to wait until the lithotripter is in [facility] on March 13. The father is leaning towards keeping the stent in until lithotripsy. We did discuss that the patient can remove the stent himself at home by pulling the 2 ends of the string with gentle steady pressure. Hopefully patient can be discharged later today. (3) S/P ureteral stent placement Status: Acute Category: Surgical Code(s): Z96.0 - Presence of urogenital implants (4) Acute flank pain Status: Acute Category: Medical Code(s): R10.9 - Unspecified abdominal pain (5) Constipation Status: Acute Category: Medical Code(s): K59.00 - Constipation, unspecified
--- NOTE | 2021-02-24 12:21 | P.PN_ITS ---
[facility] Anesthesia Record Part I Intake, IV Amount: 1,000 Estimated blood loss (mL): 20 Urine output (mL): 0 Blood Products used (#): none Blood Pressure: 141/73 SaO2: 96 Pulse Rate: 92 Respiratory Rate: 12 Temperature: 98.2 F Patient is:: Awake, Drowsy
[2021-02-24 12:22] VITALS: BP 141/73; PULSE 92; RESP 12; TEMP 36.8; O2SAT 96
--- NOTE | 2021-02-28 15:14 | HMH.DCSUM ---
General - General Admission date:: 02/20/21 Discharge date: 02/24/21 HPI HPI: Mr. Barr is a 21-year-old male with a history of seizure disorder and disseminated histoplasmosis who presented to the emergency room yesterday p.m. after experiencing sudden onset of left flank pain. He describes the pain as like a dagger sticking in the side. He works nights at [employer], slept well, and when awake went out to mow the lawn. While on his riding mower the pain began. He also had some nausea. Work-up in the emergency room revealed a kidney stone At 3.5 mm in the proximal ureter. He received a liter of IV fluids, was started on Flomax and given hydromorphone, Ketorolac and morphine for his pain. He also received Zofran for some nausea. The Dilaudid seemed to help his pain the best. Laboratory data on admission showed a normal CBC. Electrolytes were normal. BUN was 8 creatinine 1.10. Total bilirubin was a little high at 1.4 with otherwise normal liver function studies. Urine did show 3+ blood. This a.m. at time of exam patient is shaking with discomfort. He received morphine at 7 AM and was then given Dilaudid at this time. He was also given Zofran for nausea. He has been voiding and urine appears with blood. Hospital Course Hospital Course: The patient continued with pain and nausea management along with hydration. Urology was consulted. Dr. Mar saw the patient and felt there was a 3.5 mm proximal left ureteral stone He wanted to observe the patient overnight and continue straining his urine and pushing the fluids. He ordered a KUB for the next morning and put him on the schedule for left ureteroscopy/stone extraction. The patient had a KUB the next day showing a persistent calculus in the proximal left ureter. He continued with a significant amount of pain. Dr. Mar wanted to proceed with a ureteroscopy and stone extraction. He performed a left cystoscopy, left ureteroscopy, stone manipulation, and left stent placement on 02/22/2021. The patient had a repeat KUB showing interval insertion of the left ureteral stent with left left urolithiasis. The patient continued with right flank and lower abdominal pain. It became severe when getting up and trying to void in the bathroom. He had an anxiety attack due to the pain and had to receive lorazepam IV, which did help. He stated when the pain subsided, his anxiety would resolve. It was felt he was having bladder spasms, which caused a lot of pain and then led to a panic attack. He was started on some hyoscyamine. He did begin feeling better but continued with some pain with urination and bowel movements. He was started on some MiraLAX for constipation as well as stool softeners. He was seen again by Dr. Mar. The KUB showed the stone in the left lower pole and the stent in good position. He felt he was having some stent colic and discussed options with the father including removing the stent and hoping the stone did not pass back into the ureter. He was set up for a left ESWL next week in [place]. They did not want to wait until the lithotripsy in [facility] which would be on March 13. The father wanted to keep the stent in until lithotripsy. They did discuss that the patient could remove the stent himself by pulling the 2 ends of the string with gentle steady pressure if it became too painful. The patient was stable to be discharged home and will keep his procedure appt in [place]. Objective Vital signs: Temp Pulse Resp BP Pulse Ox 98.2 F 92 H 12 141/73 H 97 02/24/21 12:22 02/24/21 12:22 02/24/21 12:02/24/21 12:02/24/21 08:00 Narrative: - Constitutional mild distress (Experiencing severe pain) - *Routine HEENT Exam Head: Present: normocephalic, atraumatic Eye: Present: PERRL. Absent: conjunctival icterus, scleral injection ENT: Present: mucous membranes moist, oropharynx clear, nares patent - *Routine Neck Exam Present: sup
== END 2021-02-24 15:28 | disposition home or self-care (01) | DRG 661 ==
LOC: ER 18:56 → 2ND 19:22
PROVIDERS: Nurse Practitioner Family; Urology; Admitting Provider Family Medicine; Emergency Provider Emergency Medicine; PCP Family Medicine; Visit Provider Family Medicine
PROC: 0T778DZ Dilation of Left Ureter with Intraluminal Device, Via Natural or Artificial Opening Endoscopic (ICD-10-PCS; CPT 52352; principal; 2021-02-22 13:15)
DX: N20.1 Calculus of ureter (principal); F41.9 Anxiety disorder, unspecified; G40.909 Epilepsy, unspecified, not intractable, without status epilepticus; K59.00 Constipation, unspecified; F17.210 Nicotine dependence, cigarettes, uncomplicated
CPT/HCPCS: 52332; 36415; 74018; 74176; 74450; 80048; 80053; 81001; 82962; 85007; 85025; 87086; 87581; 87633; 87798; 93005; 96365; 96366; 96375; 96376; 99284; C2617; J0131; J2405

== ENCOUNTER → 2021-07-31 17:55 | Outpatient (CLI) | payer BC, SELFPAY | PROVIDERS: Visit Provider Nurse Practitioner Family | DX: Z20.822 Contact with and (suspected) exposure to COVID-19 (principal); U07.1 COVID-19 | CPT/HCPCS: C9803; U0003; U0005 ==

== ENCOUNTER → 2021-12-05 16:00 | Outpatient (CLI) | payer BC, SELFPAY ==
[2021-12-05 18:51] LABS: Adenovirus,PCR Not Detected (NotDetected); Bordetella Pertussis Not Detected (NotDetected); Chlamydophila Pneumoniae, PCR Not Detected (NotDetected); Coronavirus 229E Not Detected (NotDetected); Coronavirus NL63 Not Detected (NotDetected); Coronavirus OC43 Not Detected (NotDetected); Coronovirus HKU1,PCR Not Detected (NotDetected); Human Metapneumovirus Not Detected (NotDetected); Influenza A, PCR Not Detected (NotDetected); Influenza AH1, 2009 Not Detected (NotDetected); Influenza AH1, PCR Not Detected (NotDetected); Influenza AH3,PCR Not Detected (NotDetected); Influenza B, PCR Not Detected (NotDetected); Mycoplasma Pneumoniae, PCR Not Detected (NotDetected); Parainfluenza 1, PCR Not Detected (NotDetected); Parainfluenza 2, PCR Not Detected (NotDetected); Parainfluenza 3, PCR Not Detected (NotDetected); Parainfluenza 4, PCR Not Detected (NotDetected); Respiratory Syncytial Virus Not Detected (NotDetected); Rhinovirus/Enterovirus Not Detected (NotDetected)
== END ==
PROVIDERS: Visit Provider Emergency Medicine
DX: Z20.822 Contact with and (suspected) exposure to COVID-19 (principal); R11.10 Vomiting, unspecified
CPT/HCPCS: 87486; 87581; 87632; 87798; C9803; U0003; U0005

== ENCOUNTER 2022-05-10 10:37 | Emergency (ER) | payer BC, SELFPAY ==
[2022-05-10 10:36] VITALS: BP 141/77; PULSE 93; RESP 16; TEMP 36.8; O2SAT 99; BMI 21.2
--- NOTE | 2022-05-10 10:43 | HMH.EDGENADL ---
ED Disposition Clinical Impression: Seizure disorder Disposition: Home, Self-Care Condition on Discharge: Good Instructions: DI for Seizure Disorder -- Adult Additional Instructions: Start taking lamotrigine as prescribed. Call neurology clinic if any rash develops. Follow-up at [facility] neurology clinic, call for appointment: [phone]. Additional instructions for SEIZURE OR LOSS OF CONSCIOUSNESS/POSSIBLE SEIZURE: NO DRIVING, BIKE RIDING, SWIMMING, TUB BATHING, LADDERS UNTIL CLEARED BY DOCTOR. NO ALCOHOL OR STREET DRUGS. GET 8 HOURS OF SLEEP PER NIGHT. RETURN IF SEIZURE RECURS. Prescriptions: lamoTRIgine [Lamotrigine] 25 mg PO DIRECTED #140 tab Transmission Status: Pending to [id number] Referrals: Michael Burden MD [Primary Care Provider] - Forms: Work/School Release - Critical Care Critical Care Time: No Attestation: On 05/10/22, the high probability of a clinically significant, sudden or life threatening deterioration of the following system(s) required my full and direct attention, intervention and personal management. The time I documented below is in addition to time spent performing reported procedures but includes the following listed in this critical care notation. Medical Decision Making - Carlos Inquiry Pt receiving controlled substance: Yes Carlos was queried for this patient: Yes Risks and benefits of using a controlled substance: were not discussed with pt by me Vital Signs: 05/10/22 10:36 05/10/22 11:30 05/10/22 12:00 Temperature 98.3 F Temperature Source Oral Pulse Rate 82 66 Pulse Rate [Right Radial] 93 H Respiratory Rate 16 Blood Pressure 137/79 116/63 Blood Pressure [Right Arm] 141/77 H Blood Pressure Mean 99 80 Blood Pressure Mean [Right Arm] 98 Blood Pressure Source [Right Arm] Automatic Cuff Blood Pressure Position [Right Arm] Sitting 02 Sat by Pulse Oximetry 99 97 97 Oxygen Delivery Method Room Air Room Air 05/10/22 12:30 Temperature Temperature Source Pulse Rate 63 Pulse Rate [Right Radial] Respiratory Rate 18 Blood Pressure 119/61 Blood Pressure [Right Arm] Blood Pressure Mean 74 Blood Pressure Mean [Right Arm] Blood Pressure Source [Right Arm] Blood Pressure Position [Right Arm] 02 Sat by Pulse Oximetry 96 Oxygen Delivery Method Room Air - Lab Data Lab Results 05/10/22 10:58: WBC 6.8, RBC 5.10, Hgb 14.9, Hct 47.7, MCV 93.5, MCH 29.2, MCHC 31.3 L, RDW 12.6, Plt Count 198, MPV 9.3, Neut % (Auto) 64.1, Lymph % (Auto) 28.3, [place] % (Auto) 4.6, Eos % (Auto) 1.5, Baso % (Auto) 1.5, Neut # (Auto) 4.4, Lymph # (Auto) 1.9, [place] # (Auto) 0.3, Eos # (Auto) 0.1, Baso # (Auto) 0.1 05/10/22 10:58: Sodium 139, Potassium 4.1, Chloride 101, Carbon Dioxide 29, Anion Gap 13.1, BUN 15, Creatinine 1.00, Estimated Creat Clear 127, Estimated GFR 94, Est GFR ( Amer) 114, Glucose 110 H, Calcium 9.5, Total Bilirubin 1.1, AST 30, ALT 27, Alkaline Phosphatase 73, Total Protein 7.2, Albumin 4.6, Globulin 2.6, Albumin/Globulin Ratio 1.8 05/10/22 12:31: Urine Color Yellow, Urine Appearance Clear, Urine pH 6.5, Ur Specific [place] 1.025, Urine Protein Negative, Urine Glucose (UA) Negative, Urine Ketones Negative, Urine Blood Negative, Urine Nitrate Negative, Urine Bilirubin Negative, Urine Urobilinogen 0.2, Ur Leukocyte Esterase Negative, Urine RBC None, Urine WBC Occasional, Ur Squamous Epith Cells Occasional, Amorphous Sediment 2+, Urine Bacteria 2+ 05/10/22 12:31: Urine Opiates Screen Negative, Urine Methadone Screen Negative, Ur Barbituates Screen Negative, Ur Phencyclidine Scrn Negative, Ur Amphetamines Screen Negative, U Benzodiazepines Scrn Negative, Urine Cocaine Screen Negative, U Marijuana (THC) Screen Positive H Result diagrams: 05/10/22 10:58 05/10/22 10:58 Orders (Tests/Meds): ED MEDICATIONS Generic Name Dose Route Start Last Admin Trade Name Freq PRN Reason Stop Dose Admin Sodium Chloride 10
--- NOTE | 2022-05-10 10:48 | PC.NURSE ---
pt mother at reports pt hasn't been on seizure medication for approx 1 year, reports pt last seizure was approx 1.5 years ago. States pt previously saw a neurologist at . Reports pt has taken Keppra and oxycarbazapine in the past reports both of them make him angry (per mothers report).
--- NOTE | 2022-05-10 10:49 | PC.NURSE ---
ER at ; Mother at
--- NOTE | 2022-05-10 10:52 | CT_ITS ---
FINAL REPORT CLINICAL HISTORY: seizure FINDINGS: Axial images of the head were obtained without contrast. Coronal reformatted images were also obtained.This study was performed with techniques to keep radiation doses as low as reasonably achievable (ALARA). Individualized dose reduction techniques using automated exposure control or adjustment of mA and/or kV according to the patient's size were employed. There is no evidence of intracranial hemorrhage or mass. The ventricular size is within normal limits. There is no evidence of shift of the midline structures. No abnormal extra axial fluid collection is identified. No skull abnormality is seen on the bone window images. IMPRESSION: No acute intracranial abnormality. Reviewed, Interpreted and Dictated by Bony Noyola III, MD Transcribed by Bucky Cramer Authenticated and [facility]
--- NOTE | 2022-05-10 10:54 | PC.NURSE ---
seizure pads in place on pt bed as soon as pt arrived per EMS
--- NOTE | 2022-05-10 11:02 | PC.NURSE ---
pt reports unable to urinate at this time. Significant other at BS at this, reports pt was incontinent of urine during seizure, reported to ER
[2022-05-10 11:08] LABS: Basophils # 0.1 K/mm3 (0-0.2); Basophils % 1.5 % (0.1-2.0); Eosinophils # 0.1 K/mm3 (0.0-0.4); Eosinophils % 1.5 % (0.1-12.0); Hematocrit 47.7 % (42.0-52.0); Hemoglobin 14.9 g/dL (14.1-18.0); Lymphocytes # 1.9 K/mm3 (0.7-4.5); Lymphocytes % 28.3 % (10-50); Mean Corpuscular HGB Conc 31.3 g/dL (31.8-35.4); Mean Corpuscular Hemoglobin 29.2 pg (27.0-31.2); Mean Corpuscular Volume 93.5 fl (80-94); Mean Platelet Volume 9.3 fl (7.4-10.4); Monocytes # 0.3 K/mm3 (0.1-1.0); Monocytes % 4.6 % (1.7-9.3); Neutrophils # 4.4 K/mm3 (1.8-7.8); Neutrophils % 64.1 % (37.0-80.0); Platelet Count 198 K/mm3 (142-424); Red Cell Distribution Width 12.6 % (11.5-17.5); White Blood Count 6.8 K/mm3 (4.8-10.8)
--- NOTE | 2022-05-10 11:09 | PC.NURSE ---
pt to radiology with crystal growing technician by odalys
[2022-05-10 11:14] LABS: Alanine Aminotransferase 27 U/L (12-78); Albumin Level 4.6 g/dl (3.5-5.0); Albumin/Globulin Ratio 1.8 (1.1-1.8); Alkaline Phosphatase 73 U/L (38-126); Anion Gap 13.1 mEq/L (5-15); Aspartate Amino Transferase 30 U/L (17-59); Bilirubin,Total 1.1 mg/dl (0.2-1.3); Blood Urea Nitrogen 15 mg/dl (9-20); Calcium 9.5 mg/dl (8.4-10.2); Carbon Dioxide 29 mmol/L (22.0-30.0); Chloride 101 mmol/L (98-107); Creatinine Clearance Estimated 127 mL/min (50-200); Estimated Glomerular Filt Rate 94 ml/min (>60); GFR (African American) 114 ML/MIN (>60); Globulin 2.6 g/dL (1.3-3.2); Glucose 110 mg/dl (74-100); Potassium 4.1 mmoL/L (3.5-5.1); Sodium 139 mmol/L (136-145); Total Protein,Serum 7.2 g/dl (6.3-8.2)
--- NOTE | 2022-05-10 11:18 | PC.NURSE ---
pt returned back from CT with cad technician by odalys
[2022-05-10 11:30] VITALS: BP 137/79; PULSE 82; O2SAT 97
--- NOTE | 2022-05-10 11:38 | PC.NURSE ---
checked on pt at this time, family at BS. Pt requesting water, told him I would ask ER MD about pt having liquids and will let them know. Pt states no other needs at this time
--- NOTE | 2022-05-10 11:47 | PC.NURSE ---
ER states wants for pt to wait to have anything to drink until CT is resulted, updated pt on this.
[2022-05-10 12:00] VITALS: BP 116/63; PULSE 66; O2SAT 97
[2022-05-10 12:30] VITALS: BP 119/61; PULSE 63; RESP 18; O2SAT 96
--- NOTE | 2022-05-10 12:34 | PC.NURSE ---
calling [facility] for neurology consult
[2022-05-10 12:36] LABS: Microscopic, Urine URINE MICROSCOPIC (MICROSCOPIC)
[2022-05-10 12:37] LABS: Appearance,Urine CLEAR (Clear); Bilirubin,Urine Negative (Negative); Blood, Urine Negative (Negative); Color,Urine YELLOW (Yellow); Glucose,Urine (UA) Negative (Negative); Ketones,Urine Negative (Negative); Leukocyte Esterase,Urine Negative (Negative); Nitrate,Urine Negative (Negative); PH,Urine 6.5 (5.0-8.5); Protein,Urine Negative (Negative); Specific Gravity, Urine 1.025 (1.005-1.030); Urobilinogen,Urine 0.2 EU/dl (0.2)
[2022-05-10 12:48] LABS: Benzodiazepines Screen,Urine Negative ng/ml (<200)
[2022-05-10 12:49] LABS: Amphetamine/Metha Screen,Urine Negative ng/ml (<1000); Barbiturates Screen,Urine Negative ng/ml (<200)
[2022-05-10 12:50] LABS: Cannabinoid Screen,Urine Positive ng/ml (<50)
[2022-05-10 12:51] LABS: Cocaine Screen,Urine Negative ng/ml (<300); Methadone Screen,Urine Negative ng/ml (<300)
[2022-05-10 12:52] LABS: Opiate Screen,Urine Negative ng/ml (<300)
[2022-05-10 12:53] LABS: Phencyclidine Screen,Urine Negative ng/ml (<25)
[2022-05-10 12:57] LABS: Squamous Epithelial Cell,Urine Occasional #/hpf (0-5); WBC,Urine Occasional #/hpf (0-3)
[2022-05-10 12:58] LABS: Amorphous Sediment,Urine 2+ /lpf
[2022-05-10 13:00] LABS: Bacteria,Urine 2+ /lpf
--- NOTE | 2022-05-10 13:11 | PC.NURSE ---
LINH WALL speaking with [facility] neurology
--- NOTE | 2022-05-10 13:23 | PC.NURSE ---
ER MD at speaking with patient regarding POC
[2022-05-10 13:51] VITALS: BP 104/48; PULSE 52; RESP 16; TEMP 37; O2SAT 95
== END 2022-05-10 13:52 | disposition home or self-care (01) ==
PROVIDERS: Emergency Provider Emergency Medicine; PCP Emergency Medicine
DX: G40.909 Epilepsy, unspecified, not intractable, without status epilepticus (principal); F17.210 Nicotine dependence, cigarettes, uncomplicated
CPT/HCPCS: 70450; 80053; 80305; 81001; 85025; 87086; 96374; 99284

== ENCOUNTER → 2022-05-31 06:22 | Outpatient (CLI) | payer BC, SELFPAY ==
[2022-06-03 09:12] LABS: Oxcarbazepine 7 ug/mL (10-35)
== END ==
PROVIDERS: PCP Family Medicine; Visit Provider Family Medicine
DX: G40.909 Epilepsy, unspecified, not intractable, without status epilepticus (principal); Z51.81 Encounter for therapeutic drug level monitoring
CPT/HCPCS: 80183

== ENCOUNTER → 2023-01-04 06:27 | Outpatient (CLI) | payer BC, SELFPAY | PROVIDERS: PCP Nurse Practitioner Family; Visit Provider Nurse Practitioner Family | DX: J02.9 Acute pharyngitis, unspecified (principal) | CPT/HCPCS: 87070 ==

== ENCOUNTER 2023-09-01 09:37 | Emergency (ER) | payer BC, SELFPAY ==
[2023-09-01 09:38] VITALS: BP 141/74; PULSE 94; RESP 16; TEMP 36.5; O2SAT 100; BMI 25.0
[2023-09-01 09:46] VITALS: BP 141/74; PULSE 56; O2SAT 100
--- NOTE | 2023-09-01 09:59 | PC.NURSE ---
Dr. Chan at BS for pt eval
[2023-09-01 10:01] VITALS: BP 152/93; PULSE 61; O2SAT 100
[2023-09-01 10:03] LABS: Microscopic, Urine URINE MICROSCOPIC (MICROSCOPIC)
--- NOTE | 2023-09-01 10:04 | CT_ITS ---
PROCEDURE INFORMATION: Exam: CT Abdomen And Pelvis With Contrast Exam date and time: 09/01/2023 10:33 AM Age: 23 years old Clinical indication: Abdominal pain; Localized; Right lower quadrant (rlq); Additional info: R lower back pain rad to groin and leg TECHNIQUE: Imaging protocol: Computed tomography of the abdomen and pelvis with contrast. Radiation optimization: All CT scans at this facility use at least one of these dose optimization techniques: automated exposure control; mA and/or kV adjustment per patient size (includes targeted exams where dose is matched to clinical indication); or iterative reconstruction. Contrast material: ISOVUE; Contrast volume: 75 ml; Contrast route: IV; REPORTING DATA: Count of CT and Cardiac NM exams in prior 12 months: This patient has received 0 known CTs and 0 known cardiac nuclear medicine studies in the 12 months prior to the current study. COMPARISON: CT ABDOMEN PELVIS WO CON 02/20/2021 3:51 PM FINDINGS: Liver: Normal. No mass. Gallbladder and bile ducts: Normal. No calcified stones. No ductal dilation. Pancreas: Normal. No ductal dilation. Spleen: Normal. No splenomegaly. Adrenal glands: Normal. No mass. Kidneys and ureters: Normal. No hydronephrosis. Stomach and bowel: Unremarkable. No obstruction. No mucosal thickening. Appendix: Appendix normal. Intraperitoneal space: Unremarkable. No free air. No significant fluid collection. Vasculature: Unremarkable. No abdominal aortic aneurysm. Lymph nodes: Unremarkable. No enlarged lymph nodes. Urinary bladder: Unremarkable as visualized. Reproductive: Unremarkable as visualized. Bones/joints: Unremarkable. No acute fracture. Soft tissues: Unremarkable. IMPRESSION: Appendix normal.
--- NOTE | 2023-09-01 10:06 | HMH.EDGENADL ---
Discharge Plan Disposition Patient Disposition: Home, Self-Care Prescriptions Prescriptions: New methocarbamol 500 mg tablet 1,000 mg PO Q8H Qty: 18 0RF No Action oxcarbazepine 300 mg/5 mL (60 mg/mL) suspension 300 mg PO BID azithromycin 250 mg tablet See Rx Instructions PO .COMPLEX Qty: 6 0RF Rx Instructions: For 250 mg dose pack: take 500 mg today (day 1), then 250 mg for 4 days (days 2-5) PO Referrals Follow up/Referrals: Hunter Armenta MD [Primary Care Provider] - See instructions Activity Restrictions/Add. Instructions Additional Instructions/Restrictions: At this time it was felt you are safe to be discharged home. If new or worsening symptoms please do not hesitate to return the emergency department. If symptoms persist please follow-up with your family doctor as you are able. For pain please take Tylenol and ibuprofen, please take your methocarbamol as prescribed as needed for muscle spasms. Clinical Impressions Clinical Impression: Back pain Instructions Patient Instructions: DI for Acute Abdominal Pain Discharge ED Provider: Oral Chan General Adult HPI General Chief complaint: Abdominal Pain Stated complaint: lower back pain, possible kidney stones Time Seen by Provider: 09/01/23 09:45 Mode of Arrival: Ambulatory Source of Information: Patient Limitations: No Limitations Description of Symptoms (Recalled from ER Triage Doc. by RN): 23 yo M presents to ED with c/o right sided lower back pain. pt reports symptoms began last night. pt does have hx of kidney stones. History of Present Illness HPI narrative: Patient is a 23-year-old male with past medical history of previous kidney stones who presents emergency department for evaluation of right sided back pain. Onset was acute, over the last 24 hours. 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 Patient does not have a history of chronic back pain. No acute weakness, no saddle anesthesia, no incontinence. No other acute complaints at this time. Related Data Home Medications Medication Instructions Recorded Confirmed oxcarbazepine 300 mg/5 mL (60 300 mg PO BID 08/08/22 01/04/23 mg/mL) oral suspension Previous Rx's Medication Instructions Recorded azithromycin 250 mg tablet See Rx Instructions PO .COMPLEX #6 01/04/23 tabs methocarbamol 500 mg tablet 1,000 mg PO Q8H #18 tabs 09/01/23 Allergies Allergy/AdvReac Type Severity Reaction Status Date / Time No Known Allergies Allergy Verified 01/04/23 16:09 [facility] Disclaimer: The information contained in this section may have been updated after the patient was seen, as this information can be updated by other users. Medical History (Updated 09/01/23 @ 11:07 by Oral Chan MD) Acute bronchitis Acute flank pain Chest pain Constipation Kidney stone on left side Upper respiratory infection Surgical History (Updated 01/04/23 @ 16:22 by Wendy Matthews APRN) S/P ureteral stent placement Social History Smoking Status: Current every day smoker tobacco type: cigarettes packs per day: 0 and e-cigarettes second hand exposure: No alcohol intake: current substance use type: former substance user and marijuana current occupational status: employed Travel in the last 8 weeks: None household members: family housing: house ROS Obtained: Yes Systems reviewed as appropriate & no additional complaints except as documented Physical Exam General General appearance: alert and in no apparent distress Head Head exam: atraumatic and normocephalic Eye Eye exam: Present PERRL and EOMI ENT ENT exam: Present mucous membranes moist Neck Neck exam: Present normal inspection Chest Chest inspection: Present normal inspection and symmetric chest wall rise Respiratory
[2023-09-01 10:09] LABS: Appearance,Urine CLEAR (Clear); Bilirubin,Urine Negative (Negative); Blood, Urine Negative (Negative); Color,Urine YELLOW (Yellow); Glucose,Urine (UA) Negative (Negative); Ketones,Urine Negative (Negative); Leukocyte Esterase,Urine Negative (Negative); Nitrate,Urine Negative (Negative); PH,Urine 6.5 (5.0-8.5); Protein,Urine Negative (Negative); Specific Gravity, Urine 1.025 (1.005-1.030); Urobilinogen,Urine 0.2 EU/dl (0.2)
--- NOTE | 2023-09-01 10:13 | PC.NURSE ---
Pt gone to RAD via wheelchair
[2023-09-01 10:17] LABS: Chloride 104 mmol/L (98-107)
[2023-09-01 10:18] LABS: Potassium 4.4 mmoL/L (3.5-5.1); Sodium 140 mmol/L (136-145)
[2023-09-01 10:19] LABS: Basophils % 0.3 % (0.1-2.0); Eosinophils # 0.1 K/mm3 (0.0-0.4); Eosinophils % 1.8 % (0.1-12.0); Hematocrit 46.4 % (42.0-52.0); Hemoglobin 15.9 g/dL (14.1-18.0); Lymphocytes # 1.8 K/mm3 (0.7-4.5); Lymphocytes % 30.5 % (10-50); Mean Corpuscular HGB Conc 34.3 g/dL (31.8-35.4); Mean Corpuscular Hemoglobin 31.2 pg (27.0-31.2); Mean Corpuscular Volume 90.7 fl (80-94); Mean Platelet Volume 9.5 fl (7.4-10.4); Monocytes # 0.3 K/mm3 (0.1-1.0); Monocytes % 5.3 % (1.7-9.3); Neutrophils # 3.6 K/mm3 (1.8-7.8); Neutrophils % 62.2 % (37.0-80.0); Platelet Count 178 K/mm3 (142-424); Red Blood Count 5.11 M/mm3 (4.60-6.20); Red Cell Distribution Width 12.3 % (11.5-17.5); White Blood Count 5.8 K/mm3 (4.8-10.8)
--- NOTE | 2023-09-01 10:19 | PC.NURSE ---
Pt returned from RAD
[2023-09-01 10:20] LABS: Alanine Aminotransferase 23 U/L (12-78); Alkaline Phosphatase 85 U/L (38-126); Aspartate Amino Transferase 28 U/L (17-59); Bilirubin,Total 0.6 mg/dl (0.2-1.3); Blood Urea Nitrogen 13 mg/dl (9-20); Creatinine Clearance Estimated 165 mL/min (50-200); Estimated Glomerular Filt Rate 106 ml/min (>60); GFR (African American) 128 ML/MIN (>60)
[2023-09-01 10:21] LABS: Albumin Level 4.9 g/dl (3.5-5.0); Albumin/Globulin Ratio 1.9 (1.1-1.8); Anion Gap 10.4 mEq/L (5-15); Carbon Dioxide 30 mmol/L (22.0-30.0); Globulin 2.6 g/dL (1.3-3.2); Glucose 110 mg/dl (74-100); Total Protein,Serum 7.5 g/dl (6.3-8.2)
[2023-09-01 10:25] LABS: Squamous Epithelial Cell,Urine Occasional #/hpf (0-5)
[2023-09-01 11:19] VITALS: BP 115/78; PULSE 46; RESP 15; TEMP 36.7
== END 2023-09-01 11:20 | disposition home or self-care (01) ==
PROVIDERS: Emergency Provider Emergency Medicine; PCP Family Medicine
DX: M54.59 Other low back pain (principal); F17.290 Nicotine dependence, other tobacco product, uncomplicated; Z87.442 Personal history of urinary calculi
CPT/HCPCS: 74177; 80053; 81001; 85025; 96374; 96375; 99284; J0131; Q9967

== ENCOUNTER 2023-10-24 13:40 | Emergency (ER) | payer BC, SELFPAY ==
[2023-10-24 13:42] VITALS: BP 159/97; PULSE 89; RESP 16; TEMP 36.9; O2SAT 98; BMI 23.7
[2023-10-24 14:00] VITALS: BP 139/82; PULSE 70; O2SAT 96
--- NOTE | 2023-10-24 14:05 | XR_ITS ---
FINAL REPORT CLINICAL HISTORY: injury 1 moth ago, left distal rad/uln reich COMPARISON: None FINDINGS: LEFT WRIST Three views demonstrate no acute fracture or dislocation. The visualized joint spaces are normally aligned. Bones are well mineralized. The soft tissues are unremarkable. IMPRESSION: No acute bony abnormality. Reviewed, Interpreted and Dictated by Elías Dale MD Transcribed by Corazon Seay Authenticated and [facility]
--- NOTE | 2023-10-24 14:10 | HMH.EDGENADL ---
Discharge Plan Disposition Patient Disposition: Home, Self-Care Prescriptions Prescriptions: No Action oxcarbazepine 300 mg/5 mL (60 mg/mL) suspension 300 mg PO BID azithromycin 250 mg tablet See Rx Instructions PO .COMPLEX Qty: 6 0RF Rx Instructions: For 250 mg dose pack: take 500 mg today (day 1), then 250 mg for 4 days (days 2-5) PO methocarbamol 500 mg tablet 1,000 mg PO Q8H Qty: 18 0RF Referrals Follow up/Referrals: Hunter Armenta MD [Primary Care Provider] - See instructions Mikael Alvarado DO [Staff Physician] - See instructions (for evaluation and possible outpatient MRI given chronicity of your symptoms and concern for ligamental injury ) Activity Restrictions/Add. Instructions Additional Instructions/Restrictions: Your x-ray did not demonstrate an obvious fracture or dislocation. However given the chronicity of your symptoms and the mechanism you described I suspect you may have a significant ligamental injury and recommend you follow-up with Dr. Alvarado to get an outpatient MRI for further evaluation. Clinical Impressions Clinical Impression: Left wrist sprain Discharge ED Provider: Grayson Monroe General Adult HPI General Chief complaint: Extremity Injury, Upper Stated complaint: AO 09/12/23 left wrist injury, home Time Seen by Provider: 10/24/23 14:02 History of Present Illness HPI narrative: Is a 23-year-old male presents today with left wrist pain. States that 1 month ago he was working with very heavy object that forcefully and abruptly pulled downward traction onto his left wrist and has had pain in his distal radius and ulnar aspect of his wrist ever since that time. Given the fact that he had no improvement over the last month his loved ones asked him to come to the emergency department to get evaluated for this. Denies injuries elsewhere. Has a normal neurovascular history. Related Data Home Medications Medication Instructions Recorded Confirmed oxcarbazepine 300 mg/5 mL (60 300 mg PO BID 08/08/22 01/04/23 mg/mL) oral suspension Previous Rx's Medication Instructions Recorded azithromycin 250 mg tablet See Rx Instructions PO .COMPLEX #6 01/04/23 tabs methocarbamol 500 mg tablet 1,000 mg PO Q8H #18 tabs 09/01/23 Allergies Allergy/AdvReac Type Severity Reaction Status Date / Time No Known Allergies Allergy Verified 01/04/23 16:09 PFSH PFSH Disclaimer: The information contained in this section may have been updated after the patient was seen, as this information can be updated by other users. Medical History (Updated 10/24/23 @ 14:29 by Grayson Monroe MD) Acute bronchitis Acute flank pain Chest pain Constipation Kidney stone on left side Upper respiratory infection Surgical History (Updated 01/04/23 @ 16:22 by Wendy Matthews APRN) S/P ureteral stent placement Social History Smoking Status: Current every day smoker tobacco type: cigarettes packs per day: 0 and e-cigarettes second hand exposure: No alcohol intake: current substance use type: former substance user and marijuana current occupational status: employed Travel in the last 8 weeks: None household members: family housing: house ROS Obtained: Yes All systems reviewed & no additional complaints except as documented Physical Exam General General appearance: alert Respiratory Respiratory exam: Present normal lung sounds bilaterally Cardiovascular Cardiovascular exam: Present regular rate; Absent tachycardia Extremities Exam Extremities exam: Present other (Patient has a normal neurovascular exam has tenderness to his distal radius and ulnar aspect on the volar and dorsal aspect of the wrist) Neurological Exam Neurological exam: Present alert and oriented X3 Medical Decision Making Carlos Inquiry Pt receiving controlled substance: No Vital Signs: 10/24/23 13:42 10/24/23 14:00 Temperature 9
--- NOTE | 2023-10-24 14:14 | PC.NURSE ---
pt to rad for xray
--- NOTE | 2023-10-24 14:31 | PC.NURSE ---
Velcro wrist splint placed on patients left wrist
[2023-10-24 14:44] VITALS: BP 142/88; PULSE 75; RESP 16; TEMP 36.9; O2SAT 98
--- NOTE | 2023-10-26 17:47 | PC.NURSE ---
Accessed pt chart to complete ortho paper
== END 2023-10-24 14:45 | disposition home or self-care (01) ==
PROVIDERS: Emergency Provider Student in an Organized Health Care Education/Training Program; PCP Family Medicine
DX: S63.502A Unspecified sprain of left wrist, initial encounter; F17.290 Nicotine dependence, other tobacco product, uncomplicated; X50.0XXA Overexertion from strenuous movement or load, initial encounter
CPT/HCPCS: 73110; 99283

== ENCOUNTER 2024-10-18 09:24 | Emergency (ER) | payer BC, SELFPAY ==
--- NOTE | 2024-10-18 10:15 | ED_ITS ---
Discharge Plan Disposition Patient Disposition: Home, Self-Care Condition: Good Prescriptions Prescriptions: New oseltamivir [Tamiflu] 75 mg capsule 75 mg PO BID 5 Days Qty: 10 0RF ibuprofen [IBU] 800 mg tablet 800 mg PO Q8HP PRN (Reason: Moderate Pain) Qty: 30 0RF ondansetron 4 mg Tablet,Disintegrating 4 mg PO Q8H PRN (Reason: Nausea) Qty: 12 0RF No Action oxcarbazepine 600 mg tablet 600 mg PO BID Referrals Follow up/Referrals: Hunter Armenta MD [Primary Care Provider] - See instructions Activity Restrictions/Add. Instructions Additional Instructions/Restrictions: Drink plenty of fluids. Take tylenol or ibuprofen for pain or fever. Take the medications as directed. Follow up with your regular doctor. GO TO THE ER FOR ANY WORSENING SYMPTOMS Clinical Impressions Clinical Impression: Influenza A Instructions Patient Instructions: Influenza, DI for Influenza -- Adult, Oseltamivir Print Language Print Language: Kiswahili Discharge ED Provider: Evgeny Lopez [facility] General Stated complaint: fever, body aches Time Seen by Provider: 10/18/24 10:15 Related Data Home Medications ?Medication ?Instructions ?Recorded ?Confirmed oxcarbazepine 600 mg tablet 600 mg PO BID 10/21/24 10/21/24 Previous Rx's ?Medication ?Instructions ?Recorded ibuprofen 800 mg tablet (IBU) 800 mg PO Q8HP PRN Moderate Pain 10/18/24 #30 tabs ondansetron 4 mg disintegrating 4 mg PO Q8H PRN Nausea #12 tabs 10/18/24 tablet oseltamivir 75 mg capsule (Tamiflu) 75 mg PO BID 5 days #10 caps 10/18/24 Allergies Allergy/AdvReac Type Severity Reaction Status Date / Time No Known Allergies Allergy Verified 12/26/23 14:25 [facility] Disclaimer: The information contained in this section may have been updated after the patient was seen, as this information can be updated by other users. 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 current occupational status: employed Travel in the last 8 weeks: None household members: family housing: house Have you lived/traveled outside [place] in past 30 days?: No Contact w/someone who lives/traveled outside US past 30 days?: No Exposure to someone with infectious disease in past 14 days?: No Do you have a fever (greater than 100.4 F or 38 C)?: No Have you tested positive for COVID-19: No Exposed to someone with COVID-19 in past 14 days?: No Do you have a sore throat?: No Do you have a cough?: Yes Do you have any weakness?: No Do you have any diarrhea?: No Are you experiencing any unusual bleeding?: No Do you have any muscle aches/pain?: No Do you have any abdominal pain?: No Are you experiencing loss of taste or smell?: No ROS Obtained: Yes All systems reviewed & no additional complaints except as documented Constitutional Constitutional: Reports chills and Reports fever(s) Eyes Eyes: Denies eye discharge ENT Ears, Nose, Mouth, and Throat: Reports as per HPI Cardiovascular Cardiovascular: Denies chest pain Respiratory Respiratory: Denies chest congestion and Reports cough Gastrointestinal Gastrointestingal: Reports nausea; Denies abdominal pain, constipation, cramping, diarrhea or vomiting Musculoskeletal Musculoskeletal: Denies arthralgias Integumentary/Breasts Skin/Breast: Denies rash Neurologic Neurologic: Denies paresthesias Physical Exam General General appearance: alert and in no apparent distress Head Head exam: atraumatic, normocephalic and normal inspection Eye Eye exam: Present normal appearance, PERRL and EOMI ENT ENT exam: Present normal exam, normal oropharynx, mucous membranes moist, TM's normal bilaterally and normal external ear exam Neck Neck exam: Present normal inspection, full ROM and trachea midline; Absent meningismus or lymphadenopathy Chest Chest inspection: Present normal inspection and symmetric chest wall rise; Absent tenderness Respiratory Respiratory exam: Present normal lung sounds bilaterally; Absent respiratory distress Cardiovascular Cardiovascular exam: Present regular rate and normal rhythm; Absent JVD Abdominal Exam Abdominal exam: Present soft and normal bowel sounds; Absent distention, tenderness or guarding Extremities Exam Extremities exam: Present normal inspection, full ROM and normal capillary refill; Absent calf tenderness Back Exam Back exam: Present normal inspection; Absent tenderness Neurological Exam Neurological exam: Present alert and oriented X3 Psychiatric Psychiatric exam: Present normal affect and normal mood Skin Skin exam: Present warm, dry, intact and normal color Lymphatic Lymphatic Findings: no adenopathy Medical Decision Making Medical Records Medical records reviewed: No I reviewed the patient's medical records. Screening: Per USPSTF and CDC recommendations, given the prevalence of disease in our region, it is our hospital?s policy to screen for HIV and viral Hepatitis for all patients aged 18 and over and those with ongoing risk factors. Carlos Inquiry Pt receiving controlled substance: No Lab Data Lab results reviewed: Yes I reviewed the patient's lab results.
[2024-10-18 10:19] VITALS: BP 118/83; PULSE 103; RESP 18; TEMP 37.7; O2SAT 98; BMI 24.7
[2024-10-18 10:30] LABS: UTC Influenza A Antigen Positive (Negative); UTC Influenza B Antigen Negative (Negative)
[2024-10-18 10:44] VITALS: BP 118/83; PULSE 103; RESP 18; TEMP 37.7
== END 2024-10-18 10:45 | disposition home or self-care (01) ==
PROVIDERS: Emergency Provider Nurse Practitioner Family; PCP Family Medicine
DX: J10.1 Influenza due to other identified influenza virus with other respiratory manifestations (principal); R50.9 Fever, unspecified; M79.10 Myalgia, unspecified site; R05.9 Cough, unspecified; R11.0 Nausea
CPT/HCPCS: 87804; 99212; G0381

== ENCOUNTER 2024-10-21 08:01 | Emergency (ER) | payer BC, SELFPAY ==
[2024-10-21 08:15] VITALS: BP 139/102; PULSE 87; RESP 19; TEMP 36.8; O2SAT 99; BMI 24.8
--- NOTE | 2024-10-21 08:18 | XR_ITS ---
FINAL REPORT CLINICAL HISTORY: congestion, hx histoplasmosis COMPARISON: None FINDINGS: No acute pulmonary density is evident. There is no evidence of effusion or other pleural disease. The mediastinum has a normal appearance. The cardiac silhouette is unremarkable. IMPRESSION: Unremarkable chest exam. Reviewed, Interpreted and Dictated by Omer Love MD Transcribed by Mare Alvarado Authenticated and [facility]
--- NOTE | 2024-10-21 08:28 | ED_ITS ---
Discharge Plan Disposition Patient Disposition: Home, Self-Care Condition: Good Prescriptions Prescriptions: No Action oxcarbazepine 600 mg tablet 600 mg PO BID oseltamivir [Tamiflu] 75 mg capsule 75 mg PO BID 5 Days Qty: 10 0RF ibuprofen [IBU] 800 mg tablet 800 mg PO Q8HP PRN (Reason: Moderate Pain) Qty: 30 0RF ondansetron 4 mg Tablet,Disintegrating 4 mg PO Q8H PRN (Reason: Nausea) Qty: 12 0RF Referrals Follow up/Referrals: Hunter Armenta MD [Primary Care Provider] - See instructions Activity Restrictions/Add. Instructions Additional Instructions/Restrictions: * Lots of rest * Increase Fluids water, Gatorade, powerade, pedialyte,if /toddle r/child * Alternate Tylenol and / or ibuprofen as discussed for fever, aches, chills Follow up IMMEDIATELY with your family doctor for new or worsening Symptoms OR no noticeable improvement over the next 48-72 hours, 911 for difficulty or breathing * You or your child area contagious until no fever, aches, chills for 24 hours with medication for symptoms * Help Prevent the spread of influenza: * ?Wash your hands often. Use soap and water. Wash your hands after you use the bathroom, change a child's diapers, or sneeze. Wash your hands before you prepare or eat food. Use gel hand cleanser that has 60% alcohol, when soap and water are not available. Do not touch your eyes, nose, or mouth unless you have washed your hands first. * Cover your mouth when you sneeze or cough. Cough into a tissue or the bend of your arm. If you use a tissue, throw it away immediately and wash your hands. * Clean shared items with a germ-killing carpet cleaner. Clean table surfaces, doorknobs, and light switches. Do not share towels, silverware, and dishes with people who are sick. Wash bed sheets, towels, silverware, and dishes with soap and water. * Wear a mask over your mouth and nose if you are sick. The face mask may help protect others from becoming infected with the flu. Wear the mask when in common areas of your home or if you seek care with a healthcare provider. * Stay away from others if you are sick. Stay at home until 24 hours after your fever and symptoms are gone. * Drinking Warm tea with honey may help with throat and chest irritation Clinical Impressions Clinical Impression: Influenza A Stand Alone Forms Stand Alone Forms: Work/School Release Instructions Patient Instructions: DI for Influenza -- Adult Print Language Print Language: [place] Discharge ED Provider: Brina Avalos [facility] [place] H[place] General Stated complaint: cough, congestion Mode of Arrival: Ambulatory Source of Information: Patient Limitations: No Limitations Time Seen by Provider: 10/21/24 08:29 Description of Symptoms (Recalled from Triage Doc. by RN): PATIENT C/O PRODUCTIVE COUGH AND CHEST HURTING WITH COUGH. PATIENT REPORTS HE WAS DIAGNOSED WITH THE FLU 2 DAYS AGO HEENT Symptoms (Recalled from RN notes): No Resp Symptoms (Recalled from RN notes): Yes Skin Symptoms (Recalled from RN notes): No MS Symptoms (Recalled from RN notes): No Functional Status (Recalled from RN notes): WNL History of Present Illness Provider Complaint: Patient states that he was dx with the flu a couple days ago and not getting any better States that he is having a burning/stinging sensation in his chest area when he coughs worried he may have pneumonia or bronchitits on top of it States at times his cough is productive Related Data Home Medications ?Medication ?Instructions ?Recorded ?Confirmed oxcarbazepine 600 mg tablet 600 mg PO BID 10/21/24 10/21/24 Previous Rx's ?Medication ?Instructions ?Recorded ibuprofen 800 mg tablet (IBU) 800 mg PO Q8HP PRN Moderate Pain 10/18/24 #30 tabs ondansetron 4 mg disintegrating 4 mg PO Q8H PRN Nausea #12 tabs 10/18/24 tablet oseltamivir 75 mg capsule (Tamiflu) 75 mg PO BID 5 days #10 caps 10/18/24 Allergies Allergy/AdvReac Type Severity Reaction Status Date / Time No Known Allergies Allergy Verified 12/26/23 14:25 Worker's Comp Is this a Worker's Comp case?: No [facility] Disclaimer: The information contained in this section may have been updated after the patient was seen, as this information can be updated by other users. 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 current occupational status: employed Travel in the last 8 weeks: None household members: family housing: house Have you lived/traveled outside US in past 30 days?: No Contact w/someone who lives/traveled outside US past 30 days?: No Exposure to someone with infectious disease in past 14 days?: No Do you have a fever (greater than 100.4 F or 38 C)?: No Have you tested positive for COVID-19: No Exposed to someone with COVID-19 in past 14 days?: No Do you have a sore throat?: No Do you have a cough?: Yes Do you have any weakness?: No Do you have any diarrhea?: No Are you experiencing any unusual bleeding?: No Do you have any muscle aches/pain?: No Do you have any abdominal pain?: No Are you experiencing loss of taste or smell?: No ROS Obtained: Yes All systems reviewed & no additional complaints except as documented and Yes Systems reviewed as appropriate & no additional complaints except as documented Constitutional Constitutional: Reports system reviewed and no additional complaints, except as documented and Reports as per HPI ENT Ears, Nose, Mouth, and Throat: Reports system reviewed and no additional complaints, except as documented and Reports as per HPI Cardiovascular Cardiovascular: Reports system reviewed and no additional complaints, except as documented and Reports as per HPI Respiratory Respiratory: Reports system reviewed and no additional complaints, except as documented, Reports as per HPI, Reports cough and Reports pain with cough Gastrointestinal Gastrointestingal: Reports system reviewed and no additional complaints, except as documented and as per HPI Physical Exam General General appearance: alert and in no apparent distress ENT ENT exam: Present normal exam, normal oropharynx, mucous membranes moist and TM's normal bilaterally Respiratory Respiratory exam: Present normal lung sounds bilaterally; Absent respiratory distress or wheezes Cardiovascular Cardiovascular exam: Present regular rate, normal rhythm and normal heart sounds Abdominal Exam Abdominal exam: Present soft and normal bowel sounds; Absent distention or tenderness Neurological Exam Neurological exam: Present alert, oriented X3 and normal gait Medical Decision Making Medical Records Screening: Per USPSTF and CDC recommendations, given the prevalence of disease in our region, it is our hospital?s policy to screen for HIV and viral Hepatitis for all patients aged 18 and over and those with ongoing risk factors. Carlos Inquiry Pt receiving controlled substance: No Carlos was queried for this patient: No Vital Signs: 10/21/24 08:15 Temperature 98.3 F Temperature Source Oral Pulse Rate [Left Brachial] 87 Respiratory Rate 19 Blood Pressure [Left Arm] 139/102 H Blood Pressure Mean [Left Arm] 114 Blood Pressure Source [Left Arm] Automatic Cuff Blood Pressure Position [Left Arm] Sitting 02 Sat by Pulse Oximetry 99 Oxygen Delivery Method Room Air Orders (Tests/Meds): ORDERS Category Date Time Status CXR 2 view (NOT portable) [XR chest 2V] Stat Exams 10/21/24 08:18 Ordered Radiology Data #1: Image(s): Chest Image Reviewed: Yes I have reviewed radiologist's interpretation Unremarkable chest exam
[2024-10-21 08:40] VITALS: BP 138/84
[2024-10-21 09:48] VITALS: BP 138/84; PULSE 87; RESP 19; TEMP 36.8; O2SAT 99
== END 2024-10-21 09:50 | disposition home or self-care (01) ==
PROVIDERS: Emergency Provider Nurse Practitioner; PCP Family Medicine
DX: J09.X2 Influenza due to identified novel influenza A virus with other respiratory manifestations (principal)
CPT/HCPCS: 71046; 99213; G0381